=== PATIENT | male | born 1945 | race African-American/Black ===

== ENCOUNTER 2022-08-25 19:17 | Inpatient (IN) | payer OTHER, MEDICAID ==
[~2022-08-25] VITALS: Ht 177.8 cm; Wt 72.6 kg
--- NOTE | 2022-08-25 19:30 | NUR ---
Mago briones in [facility] - 08/25/22 at 1930 by JANEE PT TO BED 04 VIA W/C
--- NOTE | 2022-08-25 19:30 | NUR ---
PT W/C ASSISTED TO ER BED 4
[2022-08-25] MEDS ORDERED: NACL 0.9% 500 ML IV ONE (19:40)
[2022-08-25] MEDS ORDERED: ATROPINE 0.4 MG/ML VIAL IVP ONE ×2 (19:40→20:45)
[2022-08-25] MEDS ORDERED: CALCIUM GLUC 1 GM/50 mL NS BAG 50 ML IV ONE (20:00)
[2022-08-25] MEDS ORDERED: ATROPINE 1 MG/10 ML SYR IVP ONE (20:02)
--- NOTE | 2022-08-25 20:19 | NUR ---
X-Ray at bedside.
[2022-08-25 20:20] LABS: BASOPHILS # (AUTO) 0.1 K/uL (0.00-0.22); BASOPHILS % (AUTO) 0.6 % (0.0-2.0); EOSINOPHILS # (AUTO) 0.1 K/uL (0-0.4); EOSINOPHILS % (AUTO) 1.1 % (0.0-4.0); HEMOGLOBIN 13.5 g/dL (12.0-18.0); LYMPHOCYTES # (AUTO) 3.1 K/uL (2.0-11.5); LYMPHOCYTES % (AUTO) 30.1 % (20.5-51.1); MEAN CORPUSCULAR HEMOGLOBIN 28 pg (27-31); MEAN CORPUSCULAR HGB CONC 31 g/dL (33-37); MEAN CORPUSCULAR VOLUME 88.3 fL (80-94); MONOCYTES # (AUTO) 1.1 K/uL (0.8-1.0); MONOCYTES % (AUTO) 10.6 % (1.7-9.3); NEUTROPHILS # (AUTO) 5.9 K/uL (1.8-7.7); NEUTROPHILS % (AUTO) 57.6 % (42.2-75.2); PLATELET COUNT (AUTO) 192 K/uL (140-450); RED BLOOD CELL COUNT(AUTO) 4.87 MIL/uL (4.20-6.10); RED CELL DISTRIBUTION WIDTH 16.4 % (11.6-13.7); WHITE BLOOD COUNT (AUTO) 10.3 K/uL (4.8-10.8)
[2022-08-25] MEDS ORDERED: NITROGLYCERIN 2% 1 GM PKT TP ONE (20:30)
[2022-08-25 20:34] VITALS: BP 109/37
[2022-08-25] MEDS ORDERED: LEVO0.155 PO (20:34)
[2022-08-25] MEDS ORDERED: METF-346 PO (20:34)
[2022-08-25] MEDS ORDERED: ATEN100T2 PO (20:34)
[2022-08-25] MEDS ORDERED: DILT-135 (20:34)
[2022-08-25] MEDS ORDERED: PRED5TAB7 PO (20:34)
[2022-08-25] MEDS ORDERED: CANA300T PO (20:34)
[2022-08-25] MEDS ORDERED: BUME1TAB92 PO (20:34)
[2022-08-25] MEDS ORDERED: POTA10TA70 PO (20:34)
[2022-08-25] MEDS ORDERED: LOSA100T2 PO (20:34)
[2022-08-25] MEDS ORDERED: ROSU40TA PO (20:34)
[2022-08-25 20:42] LABS: PROTHROMBIN TIME 11.6 secs (10.8-13.4)
[2022-08-25 20:44] LABS: ALBUMIN 3.4 g/dL (3.4-5.0); ANION GAP 16.2 (8-16); ASPARTATE AMINOTRANSFERASE 33 U/L (15-37); CARBON DIOXIDE 20.9 mmol/L (21-32); CHLORIDE 101 mmol/L (98-107); CREATININE 2.1 mg/dL (0.6-1.3); GLUCOSE 307 mg/dL (74-106); SODIUM SERUM 132 mmol/L (136-145); TOTAL BILIRUBIN 0.4 mg/dL (0.0-1.0); UREA NITROGEN, BLOOD 16 mg/dL (7-18)
[2022-08-25] MEDS ORDERED: GLUCAGON 1 MG VIAL IVP ONE (20:45)
[2022-08-25 20:51] LABS: POTASSIUM 6.1 mmol/L (3.5-5.1)
[2022-08-25] MEDS ORDERED: ONDANSETRON 4 MG/2 ML VIAL ONE (20:54)
[2022-08-25] MEDS ORDERED: ONDANSETRON 4 MG/2 ML VIAL IVP ONE (20:55)
[2022-08-25] MEDS ORDERED: INSULIN REGULAR, HUMAN 100 UNIT/ML VIAL IV ONE (20:55)
[2022-08-25] MEDS ORDERED: FUROSEMIDE 40 MG/4 ML VIAL IVP ONE (20:55)
[2022-08-25] MEDS ORDERED: DEXTROSE 50% 50 ML SYR IVP ONE (20:55)
[2022-08-25] MEDS ORDERED: ALBUTEROL 0.083% 2.5 MG/3 ML NEBU INH PRN (20:55)
[2022-08-25] MEDS ORDERED: ZOLPIDEM 10 MG TAB PO PRN (21:00)
[2022-08-25] MEDS ORDERED: DOCUSATE SODIUM 100 MG GELCAP PO PRN (21:00)
[2022-08-25] MEDS ORDERED: ACETAMINOPHEN 325 MG TAB PO PRN (21:00)
[2022-08-25] MEDS ORDERED: ONDANSETRON 4 MG/2 ML VIAL IVP PRN (21:00)
[2022-08-25] MEDS ORDERED: MAG SULF 2000 MG/WATER PREMIX 50 ML IV PRN (21:00)
[2022-08-25] MEDS ORDERED: LORazepam 2 MG/ML VIAL IVP PRN (21:00)
[2022-08-25] MEDS ORDERED: POTASSIUM CHLORIDE 10 MEQ TABER PO PRN (21:00)
[2022-08-25] MEDS ORDERED: MORPHINE SULFATE 2 MG/ML SYR IVP PRN (21:00)
[2022-08-25] MEDS ORDERED: DEXTROSE 50% 50 ML SYR IVP PRN (21:00)
[2022-08-25] MEDS ORDERED: VANCOMYCIN 1,000 MG in DEXTROSE 5% 250 ML IV ONE (21:05)
--- NOTE | 2022-08-25 21:12 | NUR ---
PT WAS ABLE TO REMOVE BiPAP MASK AND VOMITED AT APPROXIMATELY 2100. PT FEELING NAUSEOUS. PLACED PT ON HFNC 40L 100%. PT TOLERATED THERAPY WELL AT THIS TIME. RN AND DR. RICE NOTIFIED.
[2022-08-25 21:15] VITALS: BP 159/48
[2022-08-25 21:16] LABS: MAGNESIUM 1.7 mg/dL (1.8-2.4); PHOSPHORUS 3.4 mg/dL (2.5-4.9)
[2022-08-25] MEDS ORDERED: VANCOMYCIN 1,000 MG VIAL ONE (21:24)
[2022-08-25] MEDS ORDERED: ALBUTEROL 0.083% 2.5 MG/3 ML NEBU INH SCH (21:25)
[2022-08-25] MEDS: BLOOD GLUCOSE MONITORING 1 DEV DEV FS SCH (22:05)
[2022-08-25] MEDS: INSULIN LISPRO SLIDING SCALE 100 UNITS/ML VIAL SUBQ PRN (22:17)
[2022-08-25] MEDS ORDERED: ALBUTEROL 0.083% 2.5 MG/3 ML NEBU INH STA (23:20)
[2022-08-25] MEDS ORDERED: SODIUM BICARBONATE 8.4% PFS 50 MEQ/50 ML SYR IVP ONE ×2 (23:24→23:30)
[2022-08-25] MEDS ORDERED: SODIUM ZIRCONIUM CYCLOSILICATE 10 GM POWD.PACK PO ONE (23:35)
[2022-08-25 23:55] VITALS: BP 128/59
[2022-08-26] VITALS (20 sets, daily range): BP systolic 97–160; BP diastolic 40–94
--- NOTE | 2022-08-26 00:08 | NUR ---
Patient will be admitted to [facility]. Admited to ICU. Will go to room 5. Belongings list completed. Report to JOSE E RODRÍGUEZ.
[2022-08-26] MEDS ORDERED: PIPERACILLIN/TAZOBACTAM 3.375 GM VIAL IV ONE ×2 (00:21→06:34)
[2022-08-26] MEDS: PIPERACILLIN/TAZOBACTAM 3.375 GM in DEXTROSE 5% 50 ML IV SCH ×2 (00:24→06:40)
--- NOTE | 2022-08-26 04:01 | NUR ---
SPO2 99%. TITRATED FiO2 FROM 100% TO 50%. PT TOLERATING WELL AT THIS TIME. SPO2 97%. RN NOTIFIED. WILL CONTINUE TO MONITOR PT.
[2022-08-26 05:24] LABS: ANION GAP 14.4 (8-16); CARBON DIOXIDE 24.4 mmol/L (21-32); CHLORIDE 102 mmol/L (98-107); CREATININE 2.2 mg/dL (0.6-1.3); GLUCOSE 136 mg/dL (74-106); POTASSIUM 5.8 mmol/L (3.5-5.1); SODIUM SERUM 135 mmol/L (136-145); UREA NITROGEN, BLOOD 20 mg/dL (7-18)
[2022-08-26 05:25] LABS: BASOPHILS % (AUTO) 0.3 % (0.0-2.0); EOSINOPHILS % (AUTO) 0.3 % (0.0-4.0); HEMATOCRIT 41.3 % (36-52); HEMOGLOBIN 13.2 g/dL (12.0-18.0); LYMPHOCYTES # (AUTO) 2.8 K/uL (2.0-11.5); MEAN CORPUSCULAR HEMOGLOBIN 27 pg (27-31); MEAN CORPUSCULAR HGB CONC 32 g/dL (33-37); MEAN CORPUSCULAR VOLUME 85.6 fL (80-94); MONOCYTES # (AUTO) 1.2 K/uL (0.8-1.0); MONOCYTES % (AUTO) 9.6 % (1.7-9.3); NEUTROPHILS % (AUTO) 66.8 % (42.2-75.2); PLATELET COUNT (AUTO) 186 K/uL (140-450); RED BLOOD CELL COUNT(AUTO) 4.83 MIL/uL (4.20-6.10); RED CELL DISTRIBUTION WIDTH 16.3 % (11.6-13.7)
[2022-08-26] MEDS: LEVOTHYROXINE 0.075 MG TAB PO SCH (06:42)
[2022-08-26] MEDS ORDERED: ZOLPIDEM 5 MG TAB PO PRN (06:55)
--- NOTE | 2022-08-26 07:15 | NUR ---
RECEIVED BEDSIDE REPORT FROM MARCOS DORANTES. PT ALLERGIC TO SULFA. PT HAS IV ON R FOREARM. PT HAS DEXCOM ON L TRICEP WITH SENSOR. PT ABLE TO USE BEDSIDE COMMODE LAST BM THIS MORNING. PT HAS STERILE WATER IRRIGATION 35 ML/HR.
[2022-08-26] MEDS ORDERED: INSULIN REGULAR, HUMAN 100 UNIT/ML VIAL IV SCH (07:45)
[2022-08-26] MEDS ORDERED: DEXTROSE 50% 50 ML SYR IVP SCH (07:45)
[2022-08-26] MEDS ORDERED: SODIUM ZIRCONIUM CYCLOSILICATE 10 GM POWD.PACK PO SCH (08:00)
[2022-08-26] MEDS: BLOOD GLUCOSE MONITORING 1 DEV DEV FS SCH ×4 (08:10→21:17)
--- NOTE | 2022-08-26 08:15 | NUR ---
PT WITH POTASSIUM LEVEL OF 5.8 AND D-DIMER 920. ROUNDING DR. KRISHNA AWARE. NO ORDERS RECEIVED.
--- NOTE | 2022-08-26 08:52 | NUR ---
PATIENT HAS BEEN SCREENED AND CATEGORIZED HIGH NUTRITION RISK. PATIENT WILL BE SEEN WITHIN 1-2 DAYS OF ADMISSION. REVIEWED BY RICK RENNER RD
[2022-08-26] MEDS ORDERED: FUROSEMIDE 40 MG/4 ML VIAL IVP SCH (09:00)
[2022-08-26] MEDS ORDERED: LOSARTAN 50 MG TAB PO SCH (09:00)
--- NOTE | 2022-08-26 09:54 | NUR ---
PT WAS FOUND IN BED WITH OXYGEN OFF AND SATURATION WAS 82%. PT HAD BE USING THE COMMODE AND STANDING FOR AWHILE. PLACED PT BACK ON HFNC WITH SETTINGS OF 35 LPM AND 40% FiO2. PT SATURATION RETURNED TO 96%. ABG WAS DONE AND RESULTS ARE pH 7.4, pCO2 32.8, pO2 65.8, HCO3- 20, AND BE -3.8. PER DOCTOR INSTRUCTED PATIENT ON USE OF IS..
--- NOTE | 2022-08-26 10:58 | NUR ---
DC PLAN A CASE OF 77 YEAR OLD MALE PATIENT ADMITTED FOR CHF .HX OF HYPOTHYROIDISM , HTN, A.FIB .CAME IN TO ER WITH COMPLAINTS OF GENERALIZED MALAISE.CXR- PULMONARY EDEMA AND PNEUMONIA.PATIENT ON HI FLOW O2.DC PLAN- HOME WHEN PATIENT RESPONDS TO TX.CM TO FOLLOW Addendum: 08/26/22 at 1111 by JAYNE GRAHAM CM DC PLANNING -ADDENDUM ON ZOSYN.BLOOD CULTURES AND MRSA SCREENING PENDING. Addendum: 08/29/22 at 1138 by Mis Rooney RN DC PLANNING: SEEN BY SHERIFF KIDNEY FUNCTION IMPROVING RECOMMENDED LASIX PO. AND OK TO DC HOME AND FOLLOW UP[P WITH PCP. PATIENT IS STABLE FOR DISCHARGE. CM TO FOLLOW.
--- NOTE | 2022-08-26 11:35 | NUR ---
INSTRUCTED PT ON THE USE OF INCENTIVE SPIROMETRY. PT TOOK 8 BREATHS WITH AN AVERAGE VOLUME OF 1750. CURRENT GOAL IS TO CONSISTENTLY HIT 2000 AND TO USE 10 TIMES PER HOUR, EVERY HOUR WHILE AWAKE. NEEDS TO WORK ON BREATH HOLD.
--- NOTE | 2022-08-26 11:58 | NUR ---
DC PLANNING ASSESSMENT COMPLETE PLEASE REFER TO ASSESSMENT FOR ADDITIONAL DETAILS FAMILY REPORTS TENTATIVE DC PLAN IS FOR PT TO RETURN PENDING PHYSICIANS RECOMMENDATIONS. FAMILY TO PROVIDE TRANSPORTATION ONCE CLEARED FROM DC. Addendum: 08/26/22 at 1200 by Imani Hunter SS Amended: Links added.
[2022-08-26] MEDS ORDERED: PIPERACILLIN/TAZOBACTAM 3.375 GM in DEXTROSE 5% 50 ML IV SCH (12:00)
[2022-08-26] MEDS: SODIUM ZIRCONIUM CYCLOSILICATE 10 GM POWD.PACK PO SCH ×2 (12:07→21:23)
[2022-08-26] MEDS: INSULIN LISPRO SLIDING SCALE 100 UNITS/ML VIAL SUBQ PRN ×2 (12:11→21:22)
[2022-08-26] MEDS: PIPERACILLIN/TAZOBACTAM 2.25 GM in DEXTROSE 5% 50 ML IV SCH ×2 (12:13→17:32)
--- NOTE | 2022-08-26 15:24 | NUR ---
08/26/22 RD INITIAL ASSESSMENT COMPLETED PLEASE REFER TO NUTRITION ASSESSMENT UNDER CARE ACTIVITY FOR ESTIMATED NUTRITIONAL NEEDS. 1. RECOMMEND ADDING [id number] TO CARDIAC DIET TOLERATED 2. MONITOR PO INTAKE AND NUTRITION RELATED LAB VALUES 3. RD TO FOLLOW-UP 7 DAYS, LOW RISK REVIEWED BY RICK RENNER RD
[2022-08-26 16:17] LABS: APPEARANCE,URINE CLEAR (CLEAR); BILIRUBIN,URINE NEGATIVE (NEGATIVE); BLOOD, URINE NEGATIVE (NEGATIVE); COLOR,URINE YELLOW (YELLOW); LEUKOCYTE ESTERASE ,URINE NEGATIVE (NEGATIVE); NITRITE, URINE NEGATIVE (NEGATIVE); PH,URINE 5.5 (5.0-9.0); UGLUCOSE TRACE (NEGATIVE)
[2022-08-26 16:41] LABS: URINE TOTAL PROTEIN 12.4 mg/dL (0-12)
[2022-08-26] MEDS: FUROSEMIDE 40 MG/4 ML VIAL IVP SCH (17:30)
--- NOTE | 2022-08-26 18:18 | NUR ---
PILOT PLANT OPERATOR DR SOWMYA NOVA AT PT BEDSIDE. UPDATED PT INFORMATION. NO NEW ORDERS RECEIVED.
[2022-08-27] VITALS (10 sets, daily range): BP systolic 102–142; BP diastolic 49–78
[2022-08-27] MEDS: PIPERACILLIN/TAZOBACTAM 2.25 GM in DEXTROSE 5% 50 ML IV SCH ×3 (00:10→11:49)
[2022-08-27] MEDS: LEVOTHYROXINE 0.075 MG TAB PO SCH (05:35)
[2022-08-27 05:41] LABS: ANION GAP 12.1 (8-16); CARBON DIOXIDE 30.3 mmol/L (21-32); CHLORIDE 99 mmol/L (98-107); CREATININE 1.5 mg/dL (0.6-1.3); GLUCOSE 149 mg/dL (74-106); POTASSIUM 3.4 mmol/L (3.5-5.1); SODIUM SERUM 138 mmol/L (136-145); UREA NITROGEN, BLOOD 15 mg/dL (7-18)
[2022-08-27 05:46] LABS: BASOPHILS # (AUTO) 0.1 K/uL (0.00-0.22); EOSINOPHILS # (AUTO) 0.2 K/uL (0-0.4)
[2022-08-27 05:48] LABS: BASOPHILS % (AUTO) 0.6 % (0.0-2.0); EOSINOPHILS % (AUTO) 1.2 % (0.0-4.0); HEMOGLOBIN 13.7 g/dL (12.0-18.0); LYMPHOCYTES # (AUTO) 2.7 K/uL (2.0-11.5); LYMPHOCYTES % (AUTO) 19.1 % (20.5-51.1); MEAN CORPUSCULAR HEMOGLOBIN 28 pg (27-31); MEAN CORPUSCULAR HGB CONC 33 g/dL (33-37); MEAN CORPUSCULAR VOLUME 85.2 fL (80-94); MONOCYTES # (AUTO) 1.8 K/uL (0.8-1.0); MONOCYTES % (AUTO) 12.9 % (1.7-9.3); NEUTROPHILS # (AUTO) 9.4 K/uL (1.8-7.7); NEUTROPHILS % (AUTO) 66.2 % (42.2-75.2); PLATELET COUNT (AUTO) 173 K/uL (140-450); RED BLOOD CELL COUNT(AUTO) 4.93 MIL/uL (4.20-6.10); RED CELL DISTRIBUTION WIDTH 15.9 % (11.6-13.7); WHITE BLOOD COUNT (AUTO) 14.3 K/uL (4.8-10.8)
[2022-08-27 06:10] LABS: MAGNESIUM 1.5 mg/dL (1.8-2.4); PHOSPHORUS 3.6 mg/dL (2.5-4.9)
--- NOTE | 2022-08-27 07:20 | NUR ---
RECEIVED BEDSIDE REPORT FROM STUDENT CAREER DEVELOPMENT SPECIALIST JOSE E RODRÍGUEZ. PT IS ON SEMI-FOWLERS POSITION - AWAKE, ALERT AND ORIENTED TO TI,E, PLACE AND PERSON. ABLE TO FOLLOW COMMAND. WITH HIGH-FLOW OXYGENATION AT 30% - O2 SATURATION IS 98-100%, NOT IN RESPIRATORY DISTRESS. SINUS TACHYCARDIC ON SUPERVISOR PAPER TESTING AT 112 BPM. WITH NORMAL SALINE TKO AT 5 ML/HR INFUSING WELL TO PERIPHERAL IV 20 G AT RIGHT FOREARM. WITH ANOTHER PERIPHERAL IV ACCESS G 20 OVER LEFT FOREARM V. WITH DEXCOM OVER LEFT TRICEP. SAFETY PRECAUTION IN PLACE. WILL CONTINUE TO MONITOR
--- NOTE | 2022-08-27 08:00 | NUR ---
ACCU-CHECK DONE WITH 154 RESULT - HUMULOG GIVEN PER SQ, CO-SIGNED BY MARCOS MILLER.
[2022-08-27] MEDS: INSULIN LISPRO SLIDING SCALE 100 UNITS/ML VIAL SUBQ PRN ×4 (08:01→20:34)
[2022-08-27] MEDS: BLOOD GLUCOSE MONITORING 1 DEV DEV FS SCH ×4 (08:07→20:32)
--- NOTE | 2022-08-27 08:53 | NUR ---
MAGNESIUM SULFATE 2000MG STARTED AT 25 ML/HR VIA IVPB PRN DOSE FOR PT'S LOW MAGNESIUM LEVEL OF 1.5 - CO-SIGNED WITH MARCOS MILLER.
[2022-08-27] MEDS: SODIUM ZIRCONIUM CYCLOSILICATE 10 GM POWD.PACK PO SCH (09:00)
--- NOTE | 2022-08-27 09:30 | NUR ---
DR. BAL ROUNDING AT BEDSIDE. UPDATED PATIENT INFORMATION.
--- NOTE | 2022-08-27 10:18 | NUR ---
SEEN AND EXAMINED BY DR. WALKER. UPDATED PT INFORMATION. PT OK FOR TRANSFER TO TELE.
[2022-08-27] MEDS: FUROSEMIDE 40 MG/4 ML VIAL IVP SCH ×2 (10:26→17:41)
--- NOTE | 2022-08-27 10:32 | NUR ---
K DUR 4 TABS (40MEQS) GIVEN PO FOR LOW POTASSIUM LEVEL OF 3.4.
[2022-08-27] MEDS ORDERED: VANCOMYCIN PER PHARMACY MC SCH (11:55)
[2022-08-27] MEDS ORDERED: VANCOMYCIN 1.25GM PREMIX 250 ML IV SCH (13:00)
--- NOTE | 2022-08-27 14:00 | NUR ---
NEW ORDER BY DR. MALIK OF K DUR TABS 20 MEQS NOT GIVEN. INFORMED DR. MALIK OF PRN DOSE GIVEN EARLIER FOR 3.4 POTASSIUM LEVEL - ACKNOWLEDGED BY DR. MALIK AND ADVISED NOT TO GIVE THE NEW ADDITIONAL DOSE. Addendum: 08/27/22 at 1710 by AMOS MARTINO RN [address] MALIK OF K DUR TABS 20 MEQS NOT GIVEN. INFORMED DR. MALIK OF PRN DOSE GIVEN EARLIER FOR 3.4 POTASSIUM LEVEL - ACKNOWLEDGED BY DR. MALIK AND ADVISED NOT TO GIVE THE NEW ADDITIONAL DOSE.
--- NOTE | 2022-08-27 14:09 | NUR ---
SEEN AND EXAMINED BY DR. DENG. UPDATED PT INFORMATION. PT OK TO DOWNGRADE TO TELE.
[2022-08-27] MEDS: AZITHROMYCIN 500 MG in DEXTROSE 5% 250 ML IV SCH (14:18)
--- NOTE | 2022-08-27 14:30 | NUR ---
LLAMA FARMER INFORMED OF TRANSFER. TELEMETRY UNIT CALLED - NO AVAILABLE BED OF THE MOMENT. ADVISED BY NURSE TO CALL AT 6 PM. LLAMA FARMER INFORMED.
--- NOTE | 2022-08-27 15:36 | NUR ---
SPUTUM COLLECTION DONE AND SPECIMEN SUBMITTED TO LAB.
[2022-08-27] MEDS ORDERED: POTASSIUM CHLORIDE 10 MEQ TABER PO ONE (16:00)
--- NOTE | 2022-08-27 16:30 | NUR ---
SEEN AND EXAMINED BY DR. SANCHEZ. UPDATED PT INFORMATION.
--- NOTE | 2022-08-27 18:40 | NUR ---
PT TRANSFERRED TO TEL ROOM 124B VIA WHEELCHAIR WITH HELP FROM RT. SBAR REPORT GIVEN TO MARCOS DONALD. ALL QUESTIONS ANSWERED. PT VITAL SIGNS STABLE.
--- NOTE | 2022-08-27 19:05 | NUR ---
RECEIVED PT FROM MORNING SHIFT NURSE. PT IS AOX4, AMBULATORY WITH ASSIST, ABLE VERBALIZE NEEDS AND ABLE TO FOLLOW COMMANDS. PT HAS HI-FLOW WITH 15L OF O2 LEVEL FLOW RATE AND FIO2 OF 25%.PT IS ON CARDIAC DIET AND HAS IV ON RIGHT FOREARM GAUGE 20 RUNNING WITH NS AT 5ML/HR AND SALINE LOCK ON LEFT FOREARM GAUGE 20. PT SKIN IS INTACT. PT DENIES PAIN AT THIS TIME. NO S/S OF RESPIRATORY DISTRESS NOTED. ALL SAFETY MEASURES IMPLEMENTED. BED IN LOW POSITION, BED WHEELS ON LOCK AND CALL LIGHT WITHIN REACH.
[2022-08-27] MEDS: OSELTAMIVIR PHOSPHATE 75 MG CAP PO SCH (20:25)
[2022-08-27] MEDS: METOPROLOL 25 MG TAB PO SCH (20:25)
--- NOTE | 2022-08-27 20:34 | NUR ---
SCHEDULED AND PRESCRIBED MEDICATION WAS GIVEN TO PT PER MD ORDER. PT BLOOD GLUCOSE IS 155. HUMALOG INSULIN 2 UNITS WAS GIVEN TO PT PER MD ORDER. ALL SAFETY MEASURES IMPLEMENTED. BED IN LOW POSITION, BED WHEELS ON LOCK AND CALL LIGHT WITHIN REACH.
--- NOTE | 2022-08-27 22:00 | NUR ---
RT CHANGED THE LEVEL OF HI-FLOW INTO O2 OF 20L/MIN WITH FIO2 OF 25% AND NOW SATING AT 94%
--- NOTE | 2022-08-27 22:00 | NUR ---
RT CHANGED THE LEVEL OF HI-FLOW INTO O2 OF 25L/MIN WITH FIO2 OF 20% AND NOW SATING AT 94% Addendum: 08/27/22 at 2345 by Stephanie Lambert RN WRONG ENTRY
[2022-08-28] VITALS: BP 121/60
--- NOTE | 2022-08-28 | NUR ---
PT IS ON SLEEP.CHEST RISE AND FALL SYMMETRICALLY NOTED. RESPIRATION IS EVEN AND UNLABORED. ALL SAFETY MEASURES IMPLEMENTED. LUCIO DIN LOW POSITION, BED WHEELS ON LOCK AND CALL LIGHT WITHIN REACH.
--- NOTE | 2022-08-28 02:00 | NUR ---
CHECKED THE PT, STILL ON SLEEP. CHEST RISE AND FALL SYMMETRICALLY NOTED. RESPIRATION IS EVEN AND UNLABORED. ALL SAFETY MEASURES IMPLEMENTED. LUCIO DIN LOW POSITION, BED WHEELS ON LOCK AND CALL LIGHT WITHIN REACH.
[2022-08-28 04:00] VITALS: BP 125/78
[2022-08-28] MEDS: LEVOTHYROXINE 0.075 MG TAB PO SCH (06:09)
--- NOTE | 2022-08-28 06:09 | NUR ---
SCHEDULED AND PRESCRIBED MEDICATION WAS GIVEN TO PT PER MD ORDER. ALL SAFETY MEASURES IMPLEMENTED. BED IN LOW POSITION, BED WHEELS ON LOCK AND CALL LIGHT WITHIN REACH.
[2022-08-28 06:37] LABS: BASOPHILS # (AUTO) 0.1 K/uL (0.00-0.22); BASOPHILS % (AUTO) 1.1 % (0.0-2.0); EOSINOPHILS # (AUTO) 0.2 K/uL (0-0.4); EOSINOPHILS % (AUTO) 2.7 % (0.0-4.0); HEMATOCRIT 44.1 % (36-52); HEMOGLOBIN 14.6 g/dL (12.0-18.0); LYMPHOCYTES # (AUTO) 2.3 K/uL (2.0-11.5); LYMPHOCYTES % (AUTO) 26.3 % (20.5-51.1); MEAN CORPUSCULAR HEMOGLOBIN 28 pg (27-31); MEAN CORPUSCULAR HGB CONC 33 g/dL (33-37); MEAN CORPUSCULAR VOLUME 84.8 fL (80-94); MONOCYTES # (AUTO) 1.2 K/uL (0.8-1.0); MONOCYTES % (AUTO) 13.9 % (1.7-9.3); PLATELET COUNT (AUTO) 174 K/uL (140-450); RED CELL DISTRIBUTION WIDTH 15.7 % (11.6-13.7); WHITE BLOOD COUNT (AUTO) 8.9 K/uL (4.8-10.8)
[2022-08-28] MEDS: BLOOD GLUCOSE MONITORING 1 DEV DEV FS SCH ×4 (06:38→21:25)
--- NOTE | 2022-08-28 06:38 | NUR ---
PT BLOOD GLUCOSE IS 120. NO INSULIN COVERAGE NEEDED.
[2022-08-28 06:59] LABS: ANION GAP 12.5 (8-16); CARBON DIOXIDE 30.9 mmol/L (21-32); CHLORIDE 99 mmol/L (98-107); CREATININE 1.3 mg/dL (0.6-1.3); GLUCOSE 111 mg/dL (74-106); POTASSIUM 3.4 mmol/L (3.5-5.1); SODIUM SERUM 139 mmol/L (136-145); UREA NITROGEN, BLOOD 19 mg/dL (7-18)
[2022-08-28 07:02] LABS: MAGNESIUM 1.7 mg/dL (1.8-2.4); PHOSPHORUS 3.2 mg/dL (2.5-4.9)
--- NOTE | 2022-08-28 07:19 | NUR ---
PT IS STABLE. ENDORSED PT TO MORNING SHIFT NURSE FOR CONTINUITY OF CARE.
--- NOTE | 2022-08-28 07:20 | NUR ---
RECEIVED PATIENT FROM PM NURSE FOR CONTINUATION OF CARE.
[2022-08-28 08:00] VITALS: BP 125/69
[2022-08-28] MEDS: FUROSEMIDE 40 MG/4 ML VIAL IVP SCH (09:00)
[2022-08-28] MEDS: METOPROLOL 25 MG TAB PO SCH ×2 (09:00→21:18)
[2022-08-28] MEDS: OSELTAMIVIR PHOSPHATE 75 MG CAP PO SCH ×2 (09:00→21:18)
[2022-08-28 12:00] VITALS: BP 119/67
[2022-08-28] MEDS: AZITHROMYCIN 500 MG in DEXTROSE 5% 250 ML IV SCH (14:00)
[2022-08-28 16:00] VITALS: BP 129/65
[2022-08-28] MEDS: INSULIN LISPRO SLIDING SCALE 100 UNITS/ML VIAL SUBQ PRN ×2 (16:08→21:28)
--- NOTE | 2022-08-28 17:00 | NUR ---
POTASSIUM AND MAGNESIUM LOW FOR PATIENT. K DUR GIVEN. MAG RIDER GIVEN.
--- NOTE | 2022-08-28 19:30 | NUR ---
RECEIVED REPORT FROM DAY SHIFT NURSE ALEKSANDER FOR CONTINUITY OF CARE. PATIENT IS A&O X4. PATIENT IS ON HIGH FLOW NC, BREATHING IS NORMAL WITH SYMMETRICAL RISE AND FALL OF CHEST. IV IS A 20G R ARM AND 20G L ARM; NO FLUIDS RUNNING AT THIS TIME (SALINE LOCKED). PATIENT IS SLEEPING, LYING SEMI-FOWLERS IN BED. BED IS IN LOWEST POSITION, WHEELS LOCKED, CALL LIGHT IN PLACE. WILL CONTINUE TO OBSERVE PATIENT.
--- NOTE | 2022-08-28 19:31 | NUR ---
ENDORSED PATIENT TO PM NURSE FOR CONTINUATION OF CARE
[2022-08-28 20:00] VITALS: BP 124/65
[2022-08-29] VITALS: BP 112/54
--- NOTE | 2022-08-29 | NUR ---
PATIENT HAS BEEN SLEEPING THROUGHOUT THE NIGHT. PATIENT IS STILL ON HIGH FLOW NC. BREATHING IS NORMAL WITH SYMMETRICAL RISE AND FALL OF CHEST. WILL CONTINUE TO OBSERVE PATIENT.
[2022-08-29 04:00] VITALS: BP 111/51
[2022-08-29 05:56] LABS: BASOPHILS # (AUTO) 0.1 K/uL (0.00-0.22); BASOPHILS % (AUTO) 0.7 % (0.0-2.0); EOSINOPHILS # (AUTO) 0.3 K/uL (0-0.4); EOSINOPHILS % (AUTO) 3.2 % (0.0-4.0); HEMOGLOBIN 14.4 g/dL (12.0-18.0); LYMPHOCYTES % (AUTO) 24.4 % (20.5-51.1); MEAN CORPUSCULAR HEMOGLOBIN 28 pg (27-31); MEAN CORPUSCULAR HGB CONC 33 g/dL (33-37); MEAN CORPUSCULAR VOLUME 84.6 fL (80-94); MONOCYTES # (AUTO) 1.4 K/uL (0.8-1.0); MONOCYTES % (AUTO) 16.7 % (1.7-9.3); NEUTROPHILS # (AUTO) 4.6 K/uL (1.8-7.7); PLATELET COUNT (AUTO) 184 K/uL (140-450); RED CELL DISTRIBUTION WIDTH 15.6 % (11.6-13.7); WHITE BLOOD COUNT (AUTO) 8.4 K/uL (4.8-10.8)
[2022-08-29] MEDS: FUROSEMIDE 40 MG TAB PO SCH ×2 (06:37→09:00)
[2022-08-29] MEDS: LEVOTHYROXINE 0.075 MG TAB PO SCH (06:37)
[2022-08-29] MEDS: BLOOD GLUCOSE MONITORING 1 DEV DEV FS SCH (06:41)
--- NOTE | 2022-08-29 06:43 | NUR ---
PATIENT SLEPT THROUGHOUT THE NIGHT. ADMINISTERED 0630 AND 0700 MEDICATION WITHOUT ANY ISSUES WITH SWALLOWING. PATIENT'S BS WAS 138, NO INSULIN COVERAGE WAS NEEDED. WILL CONTINUE TO OBSERVE PATIENT.
--- NOTE | 2022-08-29 07:20 | NUR ---
RECEIVED PATIENT FROM PM NURSE FOR CONTINUATION OF CARE. PATIENT SEEN ON BED AWAKE AOX4.
--- NOTE | 2022-08-29 07:33 | NUR ---
ENDORSED TO DAY SHIFT NURSE ALEKSANDER FOR CONTINUITY OF CARE. PATIENT IS STABLE.
[2022-08-29 08:18] LABS: MAGNESIUM 2.1 mg/dL (1.8-2.4); PHOSPHORUS 3.5 mg/dL (2.5-4.9)
--- NOTE | 2022-08-29 08:40 | NUR ---
PT JUST CAME BACK FROM SHOWERING. NO DISTRESS NOTED. NO SOB NOTICED. WILL CONTINUE TO MONITOR
--- NOTE | 2022-08-29 08:47 | NUR ---
PT. WITH LOW JERONIMO SCALE AT MODERATE TO HIGH RISK, CONTINUE TO FOLLOW PRESSURE INJURY PREVENTION INTERVENTIONS. -POSITIONING: TURN AND REPOSITION PATIENT Q 2H OR SOONER USE PILLOWS TO KEEP BONY PROMINENCES FROM DIRECT CONTACT WITH SURFACES USE REPOSITIONING WEDGES TO PROVIDE 30-DEGREE ANGLE FOR SIDE LYING POSITIONS OFFLOADING OR FOAM DRESSING TO ALL TUBING TO PREVENT MEDICAL DEVICES RELATED PRESSURE INJURY -RE-EVALUATING AND MANAGING INCONTINENCE MONITOR SKIN CONDITION DURING POSITION CHANGE DO NOT MASSAGE REDNESS, BONY PROMINENCES FREQUENT VIJAYA-CARE AND PROVIDE BARRIER CREAMS PRN IF SOILING MOISTURE CONTROL BY OFFER BED ELLSWORTH/URINAL /ABSORBENT PAD TO WICK AND HOLD MOISTURE KEEP SKIN DRY AND PROTECT FROM FRICTION -MANAGE FRICTION/SHEAR/MOBILITY KEEP HOB AT THE LOWEST LEVEL OF ELEVATION NO MORE THAN 30 DEGREE UNLESS OTHERWISE CONTRAINDICATED USE LIFT SHEET OR TRANSFER DEVICE TO MOVE PATIENT AND PREVENT LATERAL SHEER. PROTECT HEELS, ELBOWS BONY PROMINENCES WITH SKIN BERRIES OR FOAM DRESSING IF EXPOSED TO FRICTION OFFLOAD BILATERAL HEELS BY PLACING PILLOWS UNDER CALVES AT ALL TIMES, UNLESS OTHERWISE CONTRAINDICATED -PRESSURE REDISTRIBUTION SURFACE THERAPY ERICK ISOFLEX MATTRESS -NUTRITION: PLEASE FOLLOW RD RECOMMENDATIONS AND OFFER NUTRITION SUPPLEMENTS IF ORDERED. PLEASE CONTACT WOUND CARE NURSE FOR ANY QUESTION AND CHANGE OF WOUND CONDITION.
[2022-08-29 08:58] LABS: ANION GAP 16.5 (8-16); CARBON DIOXIDE 25.9 mmol/L (21-32); CHLORIDE 100 mmol/L (98-107); CREATININE 1.1 mg/dL (0.6-1.3); GLUCOSE 128 mg/dL (74-106); POTASSIUM 3.4 mmol/L (3.5-5.1); SODIUM SERUM 139 mmol/L (136-145); UREA NITROGEN, BLOOD 18 mg/dL (7-18)
[2022-08-29] MEDS: OSELTAMIVIR PHOSPHATE 75 MG CAP PO SCH (09:58)
[2022-08-29] MEDS: METOPROLOL 25 MG TAB PO SCH (09:59)
[2022-08-29] MEDS ORDERED: ATEN100T2 PO (10:22)
[2022-08-29] MEDS ORDERED: BUME1TAB92 PO (10:22)
[2022-08-29] MEDS ORDERED: CEPH-588 PO (10:23)
[2022-08-29] MEDS ORDERED: AZIT250T3 PO (10:23)
[2022-08-29] MEDS ORDERED: POTASSIUM CHLORIDE 10 MEQ TABER PO SCH (11:05)
[2022-08-29 11:57] VITALS: BP 113/62
[2022-08-29] MEDS: INSULIN LISPRO SLIDING SCALE 100 UNITS/ML VIAL SUBQ PRN (12:27)
--- NOTE | 2022-08-29 13:00 | NUR ---
PATIENT DISCHARGED. ALL VITALS STABLE
== END 2022-08-29 12:40 | disposition home or self-care (01) | DRG 871 ==
LOC: MED 19:17 → MTU 20:55 → MIC 22:51 → MTU 08-27 18:50
PROVIDERS: ADMIT Family Medicine; ATTEND Family Medicine
PROC: 5A09357 Assistance with Respiratory Ventilation, Less than 24 Consecutive Hours, Continuous Positive Airway Pressure (ICD-10-PCS; principal; 2022-08-25)
PROC: 5A0945A Assistance with Respiratory Ventilation, 24-96 Consecutive Hours, High Flow/Velocity Cannula (ICD-10-PCS; 2022-08-25)
DX: A41.9 Sepsis, unspecified organism (principal); E11.10 Type 2 diabetes mellitus with ketoacidosis without coma; J18.9 Pneumonia, unspecified organism; J96.01 Acute respiratory failure with hypoxia; N17.0 Acute kidney failure with tubular necrosis; R65.21 Severe sepsis with septic shock; J44.0 Chronic obstructive pulmonary disease with (acute) lower respiratory infection; I50.9 Heart failure, unspecified; Z20.822 Contact with and (suspected) exposure to COVID-19; I11.0 Hypertensive heart disease with heart failure; E03.9 Hypothyroidism, unspecified; I48.91 Unspecified atrial fibrillation; G47.33 Obstructive sleep apnea (adult) (pediatric); R00.1 Bradycardia, unspecified; E87.5 Hyperkalemia; E11.65 Type 2 diabetes mellitus with hyperglycemia; K31.89 Other diseases of stomach and duodenum; Z88.2 Allergy status to sulfonamides
CPT/HCPCS: 36415; 36600; 71045; 76770; 80048; 80053; 81003; 82570; 82803; 82948; 83605; 83735; 83880; 84100; 84300; 84443; 84484; 85025; 85379; 85610; 85730; 87040; 87070; 87081; 87205; 93005; 94640; 94660; 96374; 96375; 96376; 99291; J0456; J0461; J0610; J0696; J1610; J1815; J1940; J2405; J2543; J3370; J3372; J3475; J7060; J7613; Q0092

== ENCOUNTER 2022-11-25 06:42 | Inpatient (IN) | payer MEDICAID, OTHER ==
[~2022-11-25] VITALS: Ht 177.8 cm; Wt 84.8 kg
[2022-11-25] VITALS (14 sets, daily range): BP systolic 113–129; BP diastolic 64–76; PULSE 64–79; RESP 16–20; TEMP 95–96.7; O2SAT 90–100
[~2022-11-25 06:42] MED LIST: ATEN100T2 PO; AZIT250T3 PO; BUME1TAB92 PO; CANA300T PO; CEPH-588 PO; DILT-135; LEVO0.155 PO; LOSA100T2 PO; METF-346 PO; POTA10TA70 PO; PRED5TAB7 PO; ROSU40TA PO
[2022-11-25] MEDS ORDERED: ALBUTEROL SULFATE/IPRATROPIU 3 ML SOL IH ONE (06:55)
--- NOTE | 2022-11-25 06:55 | NUR ---
Pt. BIB family with c/o chest pain for 3 days. 8/10 on pain scale. He claims heaviness on his chest. PMHx of Atrial Fib, COPD and DM. Allergic to Sulfa meds.
[2022-11-25] MEDS ORDERED: FUROSEMIDE 40 MG/4 ML VIAL IVP ONE (07:10)
--- NOTE | 2022-11-25 07:11 | NUR ---
IV Cannula inserted on Rt. AC with G20. EKG done. O2 on 2L via NAssal Cannula. Blood extracted for bloodwroks.
--- NOTE | 2022-11-25 07:16 | NUR ---
Mago briones in [facility] - 11/25/22 at 0813 by JACK RAD AT BEDSIDE
--- NOTE | 2022-11-25 07:18 | NUR ---
LAB AT BEDSIDE.
[2022-11-25 07:34] LABS: BASOPHILS # (AUTO) 0.2 K/uL (0.00-0.22); BASOPHILS % (AUTO) 2.5 % (0.0-2.0); EOSINOPHILS # (AUTO) 0.2 K/uL (0-0.4); EOSINOPHILS % (AUTO) 1.9 % (0.0-4.0); HEMOGLOBIN 14.5 g/dL (12.0-18.0); LYMPHOCYTES # (AUTO) 2.4 K/uL (2.0-11.5); LYMPHOCYTES % (AUTO) 28.7 % (20.5-51.1); MEAN CORPUSCULAR HEMOGLOBIN 29 pg (27-31); MEAN CORPUSCULAR HGB CONC 33 g/dL (33-37); MEAN CORPUSCULAR VOLUME 88.9 fL (80-94); MONOCYTES # (AUTO) 0.9 K/uL (0.8-1.0); MONOCYTES % (AUTO) 10.2 % (1.7-9.3); NEUTROPHILS # (AUTO) 4.8 K/uL (1.8-7.7); NEUTROPHILS % (AUTO) 56.7 % (42.2-75.2); PLATELET COUNT (AUTO) 166 K/uL (140-450); RED BLOOD CELL COUNT(AUTO) 4.96 MIL/uL (4.20-6.10); WHITE BLOOD COUNT (AUTO) 8.5 K/uL (4.8-10.8)
[2022-11-25 07:50] LABS: PROTHROMBIN TIME 11.6 secs (10.8-13.4)
[2022-11-25 07:56] LABS: ALBUMIN 3.3 g/dL (3.4-5.0); ANION GAP 13.3 (8-16); ASPARTATE AMINOTRANSFERASE 82 U/L (15-37); CARBON DIOXIDE 28.5 mmol/L (21-32); CHLORIDE 104 mmol/L (98-107); CREATININE 1.4 mg/dL (0.6-1.3); GLUCOSE 198 mg/dL (74-106); POTASSIUM 3.8 mmol/L (3.5-5.1); SODIUM SERUM 142 mmol/L (136-145); TOTAL BILIRUBIN 0.7 mg/dL (0.0-1.0); UREA NITROGEN, BLOOD 13 mg/dL (7-18)
--- NOTE | 2022-11-25 08:13 | NUR ---
RAD AT BEDSIDE
[2022-11-25] MEDS ORDERED: NITROGLYCERIN 0.4 MG TAB SL ONE (08:35)
[2022-11-25] MEDS ORDERED: LORazepam 2 MG/ML VIAL IVP PRN (08:50)
[2022-11-25] MEDS ORDERED: ACETAMINOPHEN 325 MG TAB PO PRN (08:50)
[2022-11-25] MEDS ORDERED: MORPHINE SULFATE 2 MG/ML SYR IVP PRN (08:50)
[2022-11-25] MEDS ORDERED: DEXTROSE 50% 50 ML SYR IVP PRN (08:50)
[2022-11-25] MEDS ORDERED: ALBUTEROL SULFATE/IPRATROPIU 3 ML SOL IH PRN (08:50)
[2022-11-25] MEDS ORDERED: DOCUSATE SODIUM 100 MG GELCAP PO PRN (08:50)
[2022-11-25] MEDS ORDERED: ZOLPIDEM 10 MG TAB PO PRN (08:50)
[2022-11-25] MEDS ORDERED: ONDANSETRON 4 MG/2 ML VIAL IVP PRN (08:50)
[2022-11-25] MEDS ORDERED: MAG SULF 2000 MG/WATER PREMIX 50 ML IV PRN (08:50)
[2022-11-25] MEDS ORDERED: AZITHROMYCIN 250 MG TAB PO SCH (08:53)
--- NOTE | 2022-11-25 09:06 | NUR ---
Report given to MARCOS Solis. Pt in stable condition, vss, no ss of acute distress, breathing equal and unlabored. Ordered Nitro not give because it is not available. Spoke with pharmacy x 2, but medication still not available.
--- NOTE | 2022-11-25 09:13 | NUR ---
PATIENT HAS BEEN SCREENED AND CATEGORIZED MODERATE NUTRITION RISK. PATIENT WILL BE SEEN WITHIN 3-5 DAYS OF ADMISSION. 11/28/22-11/30/[address] REVIEWED BY RICK RENNER RD
--- NOTE | 2022-11-25 09:35 | NUR ---
RECEIVED REPORT FROM ER NURSE FOR TRANSFER OF CARE. PT ARRIVED IN THE UNIT VIA GURNEY. PT IS ON 4L NC. PT IS STABLE, NO SIGN OF DISTRESS. ORIENTED TO THE NEW ENVIRONMENT. CALL LIGHT, TV, BED MECHANICS AND BATHROOM. CALL LIGHT WITHIN REACH.
--- NOTE | 2022-11-25 09:48 | NUR ---
Pt trans to 107b on monitor without incident. Pt a/o x 4, vss, no ss of acute distress.
[2022-11-25] MEDS: NACL 0.9% 1,000 ML IV SCH (11:12)
[2022-11-25] MEDS: BUMETANIDE 1 MG TAB PO SCH (11:33)
[2022-11-25] MEDS: LOSARTAN 50 MG TAB PO SCH (11:34)
[2022-11-25] MEDS: DILTIAZEM 120 MG CAPER PO SCH ×2 (11:35→20:13)
[2022-11-25] MEDS: BLOOD GLUCOSE MONITORING 1 DEV DEV FS SCH ×3 (11:47→20:13)
[2022-11-25] MEDS: INSULIN LISPRO SLIDING SCALE 100 UNITS/ML VIAL SUBQ PRN ×3 (11:49→20:14)
--- NOTE | 2022-11-25 18:15 | NUR ---
PT WAS DISCHARGED, ACCOMPANIED TOWARDS THE EXIT.UBER WAS PROVIDED FOR THE PT. [facility] BUT THEY DIDN'T SMART ENERGY SPECIALIST.PT WAS STABLE, STEADY GAIT. DISCHARGE PAPERS GIVEN, ID BAND AND IV REMOVED.
--- NOTE | 2022-11-25 19:15 | NUR ---
RECEIVED PT IN BED AWAKE, ALERT AND ORIENTED X 4. DENIES PAIN AT THIS TIME. NO ACUTE RESPIRATORY DISTRESS. SKIN WARM AND DRY TO TOUCH. IVF INFUSING WELL AT THIS TIME. SAFETY PRECAUTIONS IN PLACE, CALL LIGHT IN REACH, INSTRUCTED TO CALL IF ASSISTANCE IS NEEDED, PT VERBALLY ACKNOWLEDGED.
--- NOTE | 2022-11-25 19:15 | NUR ---
GAVE BEDSIDE REPORT TO ALINING INSPECTOR NURSE FOR CONTINUITY OF CARE, PT IS AWAKE, NO SIGN OF DISTRESS. CALL LIGHT WITHIN REACH.
--- NOTE | 2022-11-25 20:15 | NUR ---
SCHEDULED MEDICATIONS GIVEN ORDERED, PT TOLERATED WELL.
--- NOTE | 2022-11-25 21:00 | NUR ---
PROVIDED HS SNACKS, PT REQUESTED APPLE JUICE AND CRACKERS. ATE 100%.
--- NOTE | 2022-11-25 22:48 | NUR ---
CPAP PLACED BY RT ORDERED, PT TOLERATING WELL. Addendum: 11/26/22 at 0646 by Radha Grant RN BIPAP-
[2022-11-26] VITALS (11 sets, daily range): BP systolic 103–119; BP diastolic 55–69; PULSE 65–98; RESP 18–20; TEMP 95.1–98.1; O2SAT 97–100
--- NOTE | 2022-11-26 | NUR ---
VITAL SIGNS TAKEN AND DOCUMENTED. PATIENT DENIES PAIN. TOLERATING CPAP ORDERED. CALL LIGHT WITHIN REACH.
--- NOTE | 2022-11-26 02:20 | NUR ---
ROUNDING DONE. PT IS ASLEEP. BREATHING EVEN AND UNLABORED. CALL LIGHT WITHIN REACH.
[2022-11-26] MEDS: NACL 0.9% 1,000 ML IV SCH (04:54)
--- NOTE | 2022-11-26 04:58 | NUR ---
PT REQUESTED TO BE OFF CVPAP, PLACED BACK TO NASAL CANNULA. Addendum: 11/26/22 at 0642 by Radha Grant RN -3L
[2022-11-26] MEDS: LEVOTHYROXINE 0.075 MG TAB PO SCH (05:32)
--- NOTE | 2022-11-26 05:35 | NUR ---
WENT TO TAKE PT OFF BiPAP, FOUND PT ON 3L NC. SATURATION 97 %. PATIENT RESTING COMFORTABLY, NO DISTRESS NOTED.WILL CONTINUE TO MONITOR PT. CALL LIGHT ON BED ACCESSIBLE TO PATIENT.
[2022-11-26 06:01] LABS: BASOPHILS # (AUTO) 0.1 K/uL (0.00-0.22); EOSINOPHILS # (AUTO) 0.1 K/uL (0-0.4); EOSINOPHILS % (AUTO) 1.1 % (0.0-4.0); HEMATOCRIT 41.7 % (36-52); HEMOGLOBIN 13.8 g/dL (12.0-18.0); LYMPHOCYTES # (AUTO) 1.6 K/uL (2.0-11.5); LYMPHOCYTES % (AUTO) 17.1 % (20.5-51.1); MEAN CORPUSCULAR HEMOGLOBIN 29 pg (27-31); MEAN CORPUSCULAR HGB CONC 33 g/dL (33-37); MEAN CORPUSCULAR VOLUME 88.3 fL (80-94); MONOCYTES # (AUTO) 1.1 K/uL (0.8-1.0); MONOCYTES % (AUTO) 11.6 % (1.7-9.3); NEUTROPHILS # (AUTO) 6.4 K/uL (1.8-7.7); NEUTROPHILS % (AUTO) 69.2 % (42.2-75.2); PLATELET COUNT (AUTO) 151 K/uL (140-450); RED BLOOD CELL COUNT(AUTO) 4.72 MIL/uL (4.20-6.10); RED CELL DISTRIBUTION WIDTH 18.1 % (11.6-13.7); WHITE BLOOD COUNT (AUTO) 9.3 K/uL (4.8-10.8)
[2022-11-26] MEDS: INSULIN LISPRO SLIDING SCALE 100 UNITS/ML VIAL SUBQ PRN ×4 (06:36→20:29)
[2022-11-26] MEDS: BLOOD GLUCOSE MONITORING 1 DEV DEV FS SCH ×4 (06:37→20:26)
--- NOTE | 2022-11-26 06:42 | NUR ---
PATIENT IS AWAKE, ALERT AND ORIENTED. PROVIDED WITH APPLE JUICE. BS-196 MG/DL, INSULIN GIVEN PER SLIDING SCALE COVERAGE ORDERED. ALL NEEDS ATTENDED TO. DENIES PAIN. SAFETY PRECAUTIONS MAINTAINED DURING THE SHIFT, CALL LIGHT REMAINS WITHIN REACH.
--- NOTE | 2022-11-26 07:12 | NUR ---
RECEIVED BEDSIDE REPORT FROM PARIMUTUEL CLERK NURSE FOR CONTINUITY OF CARE. PT IS AWAKE, GREETED ME GOOD MORNING, ON 3L NC, NO SIGN OF DISTRESS, DENIES PAIN OVERNIGHT. CALL LIGHT WITHIN REACH.
[2022-11-26] MEDS: LOSARTAN 50 MG TAB PO SCH (08:48)
[2022-11-26] MEDS: BUMETANIDE 1 MG TAB PO SCH (08:49)
[2022-11-26] MEDS: AZITHROMYCIN 250 MG TAB PO SCH (08:50)
[2022-11-26] MEDS: DILTIAZEM 120 MG CAPER PO SCH ×2 (08:50→20:18)
[2022-11-26 09:36] LABS: ANION GAP 16.6 (8-16); CARBON DIOXIDE 25.5 mmol/L (21-32); CHLORIDE 102 mmol/L (98-107); CREATININE 1.5 mg/dL (0.6-1.3); POTASSIUM 3.1 mmol/L (3.5-5.1); SODIUM SERUM 141 mmol/L (136-145); UREA NITROGEN, BLOOD 14 mg/dL (7-18)
[2022-11-26 10:33] LABS: GLUCOSE 88 mg/dL (74-106)
[2022-11-26] MEDS: POTASSIUM CHLORIDE 10 MEQ TABER PO PRN (11:47)
--- NOTE | 2022-11-26 13:30 | NUR ---
PT IS AWAKE, WATCHING TV, ON 3L NC, NO CHEST PAIN AND NO SIGNS OF DISTRESS. CALL LIGHT WITHIN REACH.
--- NOTE | 2022-11-26 19:20 | NUR ---
GAVE ENDORSEMENT TO CREDIT RISK OFFICER NURSE FOR CONTINUITY OF CARE, PT IS AWAKE AND ON BIPAP. NO SIGN OF DISTRESS. CALL LIGHT WITHIN REACH.
--- NOTE | 2022-11-26 19:30 | NUR ---
RECEIVED REPORT FROM DAY SHIFT NURSE PROMISE FOR CONTINUITY OF CARE. PATIENT IS A&O X4. PATIENT IS ON BIPAP FOR BEDTIME (3L NC DURING DAY); BREATHING IS NORMAL WITH SYMMETRICAL RISE AND FALL OF CHEST. IV IS A 20G R HAND, AND 20G RAC WITH NS RUNNING AT 50. PATIENT IS LYING SUPINE WITH BIPAP IN PLACE. BED IS IN LOWEST POSITION, WHEELS LOCKED, CALL LIGHT IN PLACE. WILL CONTINUE TO OBSERVE PATIENT.
--- NOTE | 2022-11-26 20:40 | NUR ---
ADMINISTERED 2100 MEDICATION TO PATIENT SUCCESSFULLY WITHOUT ANY ISSUE WITH SWALLOWING. PATIENT'S BS WAS 181; 2 UNITS OF HUMALOG WAS GIVEN FOR COVERAGE. PATIENT IS LYING SUPINE ON BIPAP. WILL CONTINUE TO OBSERVE PATIENT.
[2022-11-27] VITALS (14 sets, daily range): BP systolic 108–127; BP diastolic 56–68; PULSE 69–106; RESP 18; TEMP 95.3–97.3; O2SAT 94–100
[2022-11-27] MEDS: NACL 0.9% 1,000 ML IV SCH ×2 (01:10→04:57)
--- NOTE | 2022-11-27 01:30 | NUR ---
RECEIVED CALL FROM RN REGARDING BI-PAP ALARM, PATIENT LEAK WAS TOO GREAT, TIGHTENED MASK SLIGHTLY, AND ALARM RESOLVED, CALL LIGHT WITHIN REACH, PT IS TOLERATING WELL, WILL CONTINUE TO MONITOR.
--- NOTE | 2022-11-27 01:45 | NUR ---
PATIENT HAS BEEN SLEEPING THROUGHOUT THE NIGHT. BIPAP MACHINE IS ON PATIENT. CALLED RT ABOUT BIPAP ALARM; RT CAME TO ROOM AND ASSESSED; ADJUSTED THE MASK WHICH FIXED THE ALARM. PATIENT CONTINUES TO SLEEP; BREATHING IS NORMAL WITH SYMMETRICAL RISE AND FALL OF CHEST. WILL CONTINUE TO OBSERVE PATIENT.
--- NOTE | 2022-11-27 05:00 | NUR ---
PATIENT HAS SLEPT THROUGHOUT THE NIGHT ON BIPAP. BREATHING IS NORMAL WITH SYMMETRICAL RISE AND FALL OF CHEST. WILL CONTINUE TO OBSERVE PATIENT.
[2022-11-27] MEDS: LEVOTHYROXINE 0.075 MG TAB PO SCH (06:29)
[2022-11-27] MEDS: BLOOD GLUCOSE MONITORING 1 DEV DEV FS SCH ×4 (06:35→20:16)
[2022-11-27 06:49] LABS: BASOPHILS # (AUTO) 0.1 K/uL (0.00-0.22); BASOPHILS % (AUTO) 0.8 % (0.0-2.0); EOSINOPHILS # (AUTO) 0.2 K/uL (0-0.4); EOSINOPHILS % (AUTO) 2.5 % (0.0-4.0); HEMATOCRIT 39.9 % (36-52); LYMPHOCYTES # (AUTO) 1.5 K/uL (2.0-11.5); LYMPHOCYTES % (AUTO) 18.2 % (20.5-51.1); MEAN CORPUSCULAR HEMOGLOBIN 29 pg (27-31); MEAN CORPUSCULAR HGB CONC 33 g/dL (33-37); MEAN CORPUSCULAR VOLUME 88.6 fL (80-94); MONOCYTES # (AUTO) 1.1 K/uL (0.8-1.0); MONOCYTES % (AUTO) 12.8 % (1.7-9.3); NEUTROPHILS # (AUTO) 5.4 K/uL (1.8-7.7); NEUTROPHILS % (AUTO) 65.7 % (42.2-75.2); PLATELET COUNT (AUTO) 144 K/uL (140-450); RED BLOOD CELL COUNT(AUTO) 4.51 MIL/uL (4.20-6.10); RED CELL DISTRIBUTION WIDTH 18.5 % (11.6-13.7); WHITE BLOOD COUNT (AUTO) 8.2 K/uL (4.8-10.8)
[2022-11-27 07:02] LABS: ANION GAP 11.1 (8-16); CARBON DIOXIDE 29.7 mmol/L (21-32); CHLORIDE 104 mmol/L (98-107); CREATININE 1.3 mg/dL (0.6-1.3); GLUCOSE 128 mg/dL (74-106); SODIUM SERUM 142 mmol/L (136-145); UREA NITROGEN, BLOOD 14 mg/dL (7-18)
[2022-11-27 07:07] LABS: POTASSIUM 2.8 mmol/L (3.5-5.1)
--- NOTE | 2022-11-27 07:26 | NUR ---
ENDORSED TO DAY SHIFT NURSE DAVE FOR CONTINUITY OF CARE. PATIENT IS STABLE.
--- NOTE | 2022-11-27 08:04 | NUR ---
PT TAKEN OFF OF NPPV AND PLACED ON 2L NC. PT AWAKE, ALERT AND NOT SOB OR IN RESPIRATORY DISTRESS. NO PRN BREATHING TX INDICATED AT THIS TIME. CALL LIGHT WITHIN REACH.
--- NOTE | 2022-11-27 08:30 | NUR ---
NURSE NOTES DR KRISHNA WAS AT BEDSIDE AND SHE WAS TOLD OF THE PATIENT K OF 2.8.
--- NOTE | 2022-11-27 08:30 | NUR ---
NURSE REPORT REPORT OBTAINED FROM NIGHT NURSE MARQUES MEDINA AT 0726 AND THIS NURSE ASSUMED CARE. VSS. AFEB. TELE WITH AFIB 72. NO C/O PAIN OR DISCOMFORT. IV NS INFUSING. K 2.[address] KRISHNA MAKING ROUNDS AND SHE WAS TOLD OF LOW KCL AND THAT PATIENT WILL GET PO KCL ALSO ORDERED. DAVE MARTINES RN
[2022-11-27] MEDS: BUMETANIDE 1 MG TAB PO SCH (08:36)
[2022-11-27] MEDS: LOSARTAN 50 MG TAB PO SCH (08:37)
[2022-11-27] MEDS: DILTIAZEM 120 MG CAPER PO SCH ×2 (08:37→20:13)
[2022-11-27] MEDS: AZITHROMYCIN 250 MG TAB PO SCH (08:38)
--- NOTE | 2022-11-27 09:40 | NUR ---
MD COMMUNICATION DR KRISHNA WAS NOTIFIED OF K OF 2.8 AND SHE ORDER KCL RIDER 40 MEQ WITH LIDOCAINE.
[2022-11-27] MEDS: POTASSIUM CHLORIDE 10 MEQ TABER PO PRN ×2 (09:42→09:43)
[2022-11-27] MEDS ORDERED: POTASSIUM CHLORIDE 40 MEQ, LIDOCAINE 1% 25 MG in NACL 0.9% 250 ML IV SCH (10:30)
[2022-11-27] MEDS: INSULIN LISPRO SLIDING SCALE 100 UNITS/ML VIAL SUBQ PRN ×3 (11:59→20:22)
--- NOTE | 2022-11-27 12:05 | NUR ---
NURSE NOTES BG BEFORE LUNCH 235- GIVEN 4 UNITS OF HUMALOG
[2022-11-27] MEDS: BUMETANIDE 1 MG/4 ML VIAL IV SCH (17:43)
--- NOTE | 2022-11-27 17:58 | NUR ---
NURSE NOTES BG BEFORE DINNER 169- GIVEN 2 UNITS HUMALOG. PATIENT ASKED TO INCREASE HIS O2. IT WASD AT 2 L/MIN PER NC, AND UP TO 3L/MIN. ON BUMEX IVP. VOIDING OFTEN
--- NOTE | 2022-11-27 19:15 | NUR ---
NURSE REPORT REPORT GIVEN TO NIGHT NURSE MARQUES Stein TO ASSUME CARE OF PATIENT. ALL QUESTIONS ANSWERED. DAVE MARTINES RN
--- NOTE | 2022-11-27 19:30 | NUR ---
RECEIVED REPORT FROM DAY SHIFT NURSE DAVE FOR CONTINUITY OF CARE. PATIENT IS A&O X4. PATIENT IS ON BIPAP FOR BEDTIME (3L NC DURING DAY); BREATHING IS NORMAL WITH SYMMETRICAL RISE AND FALL OF CHEST. IV IS A 20G R HAND, AND 20G RAC WITH NS RUNNING AT 5ML TKO. PATIENT IS LYING SUPINE WITH BIPAP IN PLACE. BED IS IN LOWEST POSITION, WHEELS LOCKED, CALL LIGHT IN PLACE. WILL CONTINUE TO OBSERVE PATIENT.
[2022-11-27] MEDS: APIXABAN 2.5 MG TAB PO SCH (20:18)
--- NOTE | 2022-11-27 20:30 | NUR ---
2100 MEDICATION WAS ADMINISTERED TO PATIENT SUCCESSFULLY WITHOUT ANY ISSUES WITH SWALLOWING. BREATHING WAS NORMAL WITH SYMMETRICAL RISE AND FALL OF CHEST. WILL CONTINUE TO OBSERVE PATIENT.
--- NOTE | 2022-11-27 23:00 | NUR ---
PATIENT IS SLEEPING COMFORTABLY LYING SUPINE ON BIPAP. BREATHING IS NORMAL WITH SYMMETRICAL RISE AND FALL OF CHEST. WILL CONTINUE TO OBSERVE PATIENT.
[2022-11-28] VITALS (14 sets, daily range): BP systolic 102–136; BP diastolic 60–75; PULSE 60–112; RESP 18–25; TEMP 95.7–97.6; O2SAT 97–100
--- NOTE | 2022-11-28 01:30 | NUR ---
LOOKED IN ON PATIENT. PATIENT IS SLEEPING LYING SUPINE ON BIPAP. BREATHING IS NORMAL WITH SYMMETRICAL RISE AND FALL OF CHEST. BED IS IN LOWEST POSITION, WHEELS LOCKED, CALL LIGHT IN PLACE. WILL CONTINUE TO OBSERVE PATIENT.
--- NOTE | 2022-11-28 04:30 | NUR ---
PATIENT IS SLEEPING. BIPAP STILL RUNNING. BREATHING IS NORMAL WITH SYMMETRICAL RISE AND FALL OF CHEST. WILL CONTINUE TO OBSERVE PATIENT.
[2022-11-28] MEDS: LEVOTHYROXINE 0.075 MG TAB PO SCH (06:18)
[2022-11-28 06:34] LABS: BASOPHILS # (AUTO) 0.1 K/uL (0.00-0.22); BASOPHILS % (AUTO) 0.8 % (0.0-2.0); EOSINOPHILS # (AUTO) 0.2 K/uL (0-0.4); EOSINOPHILS % (AUTO) 3.5 % (0.0-4.0); HEMATOCRIT 40.7 % (36-52); HEMOGLOBIN 13.2 g/dL (12.0-18.0); LYMPHOCYTES # (AUTO) 1.4 K/uL (2.0-11.5); LYMPHOCYTES % (AUTO) 21.1 % (20.5-51.1); MEAN CORPUSCULAR HEMOGLOBIN 29 pg (27-31); MEAN CORPUSCULAR HGB CONC 33 g/dL (33-37); MEAN CORPUSCULAR VOLUME 89.6 fL (80-94); MONOCYTES # (AUTO) 0.8 K/uL (0.8-1.0); NEUTROPHILS % (AUTO) 61.6 % (42.2-75.2); PLATELET COUNT (AUTO) 151 K/uL (140-450); RED BLOOD CELL COUNT(AUTO) 4.54 MIL/uL (4.20-6.10); RED CELL DISTRIBUTION WIDTH 18.5 % (11.6-13.7); WHITE BLOOD COUNT (AUTO) 6.5 K/uL (4.8-10.8)
[2022-11-28] MEDS: BLOOD GLUCOSE MONITORING 1 DEV DEV FS SCH ×4 (06:51→20:13)
[2022-11-28] MEDS: INSULIN LISPRO SLIDING SCALE 100 UNITS/ML VIAL SUBQ PRN ×4 (06:52→20:16)
[2022-11-28 06:58] LABS: ANION GAP 11.2 (8-16); CARBON DIOXIDE 30.9 mmol/L (21-32); CHLORIDE 103 mmol/L (98-107); CREATININE 1.3 mg/dL (0.6-1.3); GLUCOSE 161 mg/dL (74-106); POTASSIUM 3.1 mmol/L (3.5-5.1); SODIUM SERUM 142 mmol/L (136-145); UREA NITROGEN, BLOOD 17 mg/dL (7-18)
--- NOTE | 2022-11-28 07:16 | NUR ---
ASSUMED CONTINUITY OF CARE. INITIAL ASSESSMENT DONE. KEEP COMFORTABLE ON BED. CALL LIGHT WITHIN REACH.
--- NOTE | 2022-11-28 07:42 | NUR ---
ENDORSED TO DAY SHIFT NURSE RIDGE FOR CONTINUITY OF CARE. PATIENT IS STABLE.
--- NOTE | 2022-11-28 08:00 | NUR ---
Patient's Plan of Care was discussed and reviewed with STEAMBOAT CAPTAIN: RIDGE HAIDER
[2022-11-28] MEDS: AZITHROMYCIN 250 MG TAB PO SCH (08:42)
[2022-11-28] MEDS: LOSARTAN 50 MG TAB PO SCH (08:42)
[2022-11-28] MEDS: DILTIAZEM 120 MG CAPER PO SCH ×2 (08:42→20:08)
[2022-11-28] MEDS: APIXABAN 2.5 MG TAB PO SCH ×2 (08:43→20:07)
[2022-11-28] MEDS: POTASSIUM CHLORIDE 10 MEQ TABER PO PRN (08:43)
[2022-11-28] MEDS: BUMETANIDE 1 MG/4 ML VIAL IV SCH ×2 (09:13→16:56)
--- NOTE | 2022-11-28 12:00 | NUR ---
VITALS SIGNS STABLE. NO C/O PAIN. WILL MONITOR.
--- NOTE | 2022-11-28 19:04 | NUR ---
REPORT GIVEN TO FREDERICK SANTIAGO FOR CONTINUITY OF CARE. NO SOB, NOTED. IN STABLE CONDITION.
--- NOTE | 2022-11-28 19:05 | NUR ---
RECEIVED PT FROM MORNING SHIFT NURSE. PT IS AOX4, AMBULATORY, ABLE TO VERBALIZE NEEDS AND ABLE TO FOLLOW COMMANDS. PT IS ON 3L NC AND ON CCHO/CARDIAC DIET. PT HAS IV ON RIGHT HAND GAUGE 20, SALINE LOCK AND LEFT FOREARM GAUGE 20, SALINE LOCK. PT SKIN IS INTACT. NO COMPLAIN OF PAIN AT THIS TIME. NO S/S OF RESPIRATORY DISTRESS NOTED. ALL SAFETY MEASURES IMPLEMENTED. BED IN LOW POSITION AND BED WHEELS ON LOCK.
--- NOTE | 2022-11-28 19:10 | NUR ---
RN CALLED BECAUSE PT ASKED TO BE PUT ON BiPAP FOR THE NIGHT. PT FOUND ON 3L NC WITH SATURATION OF 98% TO 100 %. TOOK OFF NC TO PUT ON BiPAP BUT FAMILY ARRIVED AT BEDSIDE. PT ASKED TO WAIT UNTIL VISITOR LEFT TO START BiPAP. I LEFT NC OF AN PT SATURATION STAYED AY 98%. WILL CONTINUE TO MONITOR PT.
--- NOTE | 2022-11-28 20:16 | NUR ---
ALL SCHEDULED AND PRESCRIBED MEDICATION WAS GIVEN TO PT PER MD ORDER. PT BLOOD GLUCOSE IS 210. HUMALOG INSULIN 4 UNITS WAS GIVEN TO PT. ALL SAFETY MEASURES IMPLEMENTED. BED IN LOW POSITION AND BED WHEELS ON LOCK.
--- NOTE | 2022-11-28 20:21 | NUR ---
RN CALLED TO SAY PT IS READY FOR BiPAP. PT SATURATION AT 97% ON RA, NO SOB REPORTED, PT NOT TACHYPNEIC. PLACED PT ON CPAP TO MATCH WHAT HE IS AT HOME. PT ON CPAP OF 6, FiO2 OF 30% AND IS TOLERATING MASK WELL. WILL CONTINUE TO MONITOR PT. Addendum: 11/28/22 at 2109 by Tressa Redman RT PT IS ABLE TO REMOVE MASK ON HIS OWN. CALL LIGHT IS ON BED WITHIN REACH OF PATIENT.
--- NOTE | 2022-11-28 20:22 | NUR ---
RT MADE ME AWARE THAT PT IS NOW ON CPAP INSTEAD OF BIPAP.
--- NOTE | 2022-11-28 23:30 | NUR ---
RT MADE ME AWARE THAT SHE PUT BIPAP BACK FROM CPAP TO THE PT.
[2022-11-29] VITALS (7 sets, daily range): BP systolic 100–131; BP diastolic 56–65; PULSE 71–112; RESP 18–19; TEMP 97–97.8; O2SAT 92–100
--- NOTE | 2022-11-29 | NUR ---
PT IS ON SLEEP WITH BIPAP. CHEST RISE AND FALL SYMMETRICALLY NOTED. RESPIRATION IS EVEN AND UNLABORED. ALL SAFETY MEASURES IMPLEMENTED. BED IN LOW POSITION AND BED WHEELS ON LOCK.
--- NOTE | 2022-11-29 02:00 | NUR ---
CHECKED THE PT, STILL ON SLEEP. CHEST RISE AND FALL SYMMETRICALLY NOTED. RESPIRATION IS EVEN AND UNLABORED. ALL SAFETY MEASURES IMPLEMENTED. BED IN LOW POSITION, BED WHEELS ON LOCK AND CALL LIGHT WITHIN REACH.
--- NOTE | 2022-11-29 04:00 | NUR ---
PT WAS GIVEN WARM BLANKET PER PT REQUEST. NO COMPLAIN OF PAIN AND NO S/S OF RESPIRATORY DISTRESS NOTED. ALL SAFETY MEASURES IMPLEMENTED. BED IN LOW POSITION, BED WHEELS ON LOCK AND CALL LIGHT WITHIN REACH.
--- NOTE | 2022-11-29 04:53 | NUR ---
RT REMOVED THE BIPAP AND STAY ON ROOM AIR. WILL MONITOR FOR THE O2 LEVEL OF PT WHILE ON ROOM AIR. ALL SAFETY MEASURES IMPLEMENTED. BED IN LOW POSITION, BED WHEELS ON LOCK AND CALL LIGHT WITHIN REACH.
--- NOTE | 2022-11-29 05:06 | NUR ---
TOOK PATIENT OFF BiPAP AND LEFT ON ROOM AIR. SATURATION IS STAYING ABOVE 95%. PATIENT IS RESTING COMFORTABLY AND CALL LIGHT IS ON BED ACCESSIBLE TO PATIENT.
[2022-11-29] MEDS: LEVOTHYROXINE 0.075 MG TAB PO SCH (05:53)
--- NOTE | 2022-11-29 05:53 | NUR ---
SCHEDULED AND PRESCRIBED MEDICATION WAS GIVEN TO PT PER MD ORDER. ALL SAFETY MEASURES IMPLEMENTED. BED IN LOW POSITION, BED WHEELS ON LOCK AND CALL LIGHT WITHIN REACH.
[2022-11-29] MEDS: BLOOD GLUCOSE MONITORING 1 DEV DEV FS SCH ×2 (06:30→11:43)
[2022-11-29] MEDS: INSULIN LISPRO SLIDING SCALE 100 UNITS/ML VIAL SUBQ PRN ×2 (06:31→11:43)
--- NOTE | 2022-11-29 06:31 | NUR ---
PT BLOOD GLUCOSE IS 225. HUMALOG INSULIN 4 UNITS WAS GIVEN TO PT.
[2022-11-29] MEDS ORDERED: APIX5TAB PO (06:39)
[2022-11-29] MEDS ORDERED: CEPH-588 PO (06:39)
[2022-11-29] MEDS ORDERED: DILT-135 PO (06:39)
[2022-11-29 06:46] LABS: BASOPHILS # (AUTO) 0.1 K/uL (0.00-0.22); EOSINOPHILS # (AUTO) 0.3 K/uL (0-0.4); EOSINOPHILS % (AUTO) 3.6 % (0.0-4.0); HEMATOCRIT 42.3 % (36-52); HEMOGLOBIN 14.1 g/dL (12.0-18.0); LYMPHOCYTES # (AUTO) 1.6 K/uL (2.0-11.5); LYMPHOCYTES % (AUTO) 23.3 % (20.5-51.1); MEAN CORPUSCULAR HEMOGLOBIN 30 pg (27-31); MEAN CORPUSCULAR HGB CONC 33 g/dL (33-37); MEAN CORPUSCULAR VOLUME 88.4 fL (80-94); MONOCYTES # (AUTO) 0.9 K/uL (0.8-1.0); MONOCYTES % (AUTO) 12.9 % (1.7-9.3); NEUTROPHILS # (AUTO) 4.2 K/uL (1.8-7.7); NEUTROPHILS % (AUTO) 59.2 % (42.2-75.2); PLATELET COUNT (AUTO) 162 K/uL (140-450); RED BLOOD CELL COUNT(AUTO) 4.79 MIL/uL (4.20-6.10); RED CELL DISTRIBUTION WIDTH 18.4 % (11.6-13.7)
[2022-11-29 06:48] LABS: ANION GAP 13.4 (8-16); CARBON DIOXIDE 27.9 mmol/L (21-32); CHLORIDE 102 mmol/L (98-107); CREATININE 1.2 mg/dL (0.6-1.3); GLUCOSE 209 mg/dL (74-106); POTASSIUM 3.3 mmol/L (3.5-5.1); SODIUM SERUM 140 mmol/L (136-145); UREA NITROGEN, BLOOD 17 mg/dL (7-18)
--- NOTE | 2022-11-29 07:10 | NUR ---
RECEIVED PT FROM QUALITY CONTROLLER FOR CONTINUITY OF CARE. ALERT AND ORIENTED X 4. RESP. EVEN AND UNLABORED. IV SITE PATENT AND INTACT. NO C/O PAIN OR DISCOMFORT. CALL LIGHT KEPT WITHIN REACH. WILL CONTINUE TO MONITOR.
--- NOTE | 2022-11-29 07:15 | NUR ---
PT IS STABLE. ENDORSED PT TO MORNING SHIFT NURSE FOR CONTINUITY OF CARE.
--- NOTE | 2022-11-29 08:00 | NUR ---
Patient's Plan of Care was discussed and reviewed with LAYER OUT: [place]
[2022-11-29] MEDS: DILTIAZEM 120 MG CAPER PO SCH (09:25)
--- NOTE | 2022-11-29 09:25 | NUR ---
SCHEDULED MEDICATIONS GIVEN. DILTIAZEM NOT SCANNING, ENTERED MANUALLY. PHARMACY MADE AWARE.
[2022-11-29] MEDS: APIXABAN 2.5 MG TAB PO SCH (09:31)
[2022-11-29] MEDS: LOSARTAN 50 MG TAB PO SCH (09:31)
[2022-11-29] MEDS: AZITHROMYCIN 250 MG TAB PO SCH (09:32)
[2022-11-29] MEDS: BUMETANIDE 1 MG/4 ML VIAL IV SCH (11:17)
--- NOTE | 2022-11-29 11:40 | NUR ---
[place]: In to see patient at bedside at the request of fishery division chief, Jessie. She states the patient want to talk with social media coordinator about Assisted Living Facilities. I spoke with patient about his living arrangements. Per patient, he resides with his sister. [place] in [place],. The patient would like to remain in [facility] and is wanting his own place. I explained about [facility] vs[facility] placements. The patient receives approximately $2400 a month. I provided the patient with information on [facility] that may be of benefit to him. The patient was receptive of the information provided, but advised that he should consider completing a tour after discharge so he could see what was around. At this time, the patient is not in need of any additional assistance.
--- NOTE | 2022-11-29 14:32 | NUR ---
11/29/22 RD INITIAL ASSESSMENT COMPLETED PLEASE REFER TO NUTRITION ASSESSMENT UNDER CARE ACTIVITY FOR ESTIMATED NUTRITIONAL NEEDS. 1. CONTINUE CCHO 60 GRAM AND CARDIAC DIET TOLERATED, SOFT TEXTURES. 2. RD TO FOLLOW-UP 7 DAYS, LOW RISK JOSEPHINE MONACO RD
--- NOTE | 2022-11-29 15:20 | NUR ---
PT LEFT. DISCHARGED TO HOME. TRANSPORTED BY PRIVATE CAR, ACCOMPANIED BY HIS BROTHER. ALERT AND ORIENTED X 4. RESP. EVEN AND UNLABORED. ID BAND AND IV REMOVED. DISCHARGED PAPERWORK SIGNED AND DISCUSS TO PT. ALL PERSONAL BELONGINGS TAKEN. REMAINS STABLE.
--- NOTE | 2022-12-01 11:49 | NUR ---
CALLED PATIENT TO OBTAIN INFORMATION REGARDING DOCTOR. HIS DOCTOR IS [place] IN [place] WHEN PATIENT CAME FROM. I EXPLAIN THAT HE NEEDS TO CALL HIS INSURANCE SO THAT THEY CAN FIND HIM A NEW DOCTOR TO RESUME CARE HERE IN [place].
== END 2022-11-29 15:25 | disposition home health service (06) | DRG 871 ==
LOC: MED 06:42 → MTU 08:47
PROVIDERS: ADMIT General Practice; ATTEND General Practice
PROC: 5A09357 Assistance with Respiratory Ventilation, Less than 24 Consecutive Hours, Continuous Positive Airway Pressure (ICD-10-PCS; principal; 2022-11-25)
PROC: 5A09357 Assistance with Respiratory Ventilation, Less than 24 Consecutive Hours, Continuous Positive Airway Pressure (ICD-10-PCS; 2022-11-26)
PROC: 5A09357 Assistance with Respiratory Ventilation, Less than 24 Consecutive Hours, Continuous Positive Airway Pressure (ICD-10-PCS; 2022-11-27)
PROC: 5A09357 Assistance with Respiratory Ventilation, Less than 24 Consecutive Hours, Continuous Positive Airway Pressure (ICD-10-PCS; 2022-11-28)
PROC: 5A09357 Assistance with Respiratory Ventilation, Less than 24 Consecutive Hours, Continuous Positive Airway Pressure (ICD-10-PCS; 2022-11-29)
DX: A41.9 Sepsis, unspecified organism (principal); I50.43 Acute on chronic combined systolic (congestive) and diastolic (congestive) heart failure; J69.0 Pneumonitis due to inhalation of food and vomit; J96.01 Acute respiratory failure with hypoxia; J44.1 Chronic obstructive pulmonary disease with (acute) exacerbation; I13.0 Hypertensive heart and chronic kidney disease with heart failure and stage 1 through stage 4 chronic kidney disease, or unspecified chronic kidney disease; N17.9 Acute kidney failure, unspecified; I48.20 Chronic atrial fibrillation, unspecified; Z20.822 Contact with and (suspected) exposure to COVID-19; N18.9 Chronic kidney disease, unspecified; E03.9 Hypothyroidism, unspecified; E11.22 Type 2 diabetes mellitus with diabetic chronic kidney disease; G47.33 Obstructive sleep apnea (adult) (pediatric); I48.91 Unspecified atrial fibrillation; Z87.891 Personal history of nicotine dependence; Z88.2 Allergy status to sulfonamides; Z79.01 Long term (current) use of anticoagulants; Z79.899 Other long term (current) drug therapy
CPT/HCPCS: 36415; 36600; 71045; 71275; 80048; 80053; 82803; 82948; 83036; 83605; 83735; 83880; 84484; 85025; 85379; 85610; 85730; 87040; 87081; 93005; 94660; 96374; 99285; J0696; J1644; J1815; J1940; J2001; J3480; J3490; J7030; J7060; Q9967

== ENCOUNTER 2023-01-17 23:36 | Inpatient (IN) | payer OTHER ==
[~2023-01-17] VITALS: Ht 177.8 cm; Wt 79.4 kg
[2023-01-17 23:36] VITALS: BP 107/56; PULSE 66; RESP 16; TEMP 98; O2SAT 94
[~2023-01-17 23:36] MED LIST changes: +APIX5TAB PO; -ATEN100T2 PO; -AZIT250T3 PO; -DILT-135; +DILT-135 PO; +LOSA-272 PO; -LOSA100T2 PO
[2023-01-18] VITALS (16 sets, daily range): BP systolic 107–118; BP diastolic 60–62; PULSE 58–84; RESP 18–25; TEMP 96.7–98.4; O2SAT 90–100
[2023-01-18] MEDS ORDERED: MAG SULF 2000 MG/WATER PREMIX 50 ML IV ONE (00:20)
[2023-01-18] MEDS ORDERED: FUROSEMIDE 40 MG/4 ML VIAL IVP ONE (00:20)
[2023-01-18] MEDS ORDERED: ATEN100T2 PO (00:28)
[2023-01-18] MEDS ORDERED: BUME2TAB PO (00:28)
[2023-01-18] MEDS ORDERED: EMPA25TA PO (00:28)
[2023-01-18] MEDS ORDERED: APIX5TAB PO (00:28)
[2023-01-18] MEDS ORDERED: POTA20TA50 PO (00:28)
[2023-01-18] MEDS ORDERED: [UNRECOGNIZED DRUG - CODE] PO (00:28)
[2023-01-18] MEDS ORDERED: LOSA50TA57 PO (00:28)
[2023-01-18 00:32] LABS: BASOPHILS # (AUTO) 0.1 K/uL (0.00-0.22); BASOPHILS % (AUTO) 1.9 % (0.0-2.0); EOSINOPHILS # (AUTO) 0.2 K/uL (0-0.4); EOSINOPHILS % (AUTO) 3.1 % (0.0-4.0); HEMATOCRIT 41.6 % (36-52); HEMOGLOBIN 13.7 g/dL (12.0-18.0); LYMPHOCYTES # (AUTO) 2.6 K/uL (2.0-11.5); LYMPHOCYTES % (AUTO) 37.6 % (20.5-51.1); MEAN CORPUSCULAR HEMOGLOBIN 31 pg (27-31); MEAN CORPUSCULAR HGB CONC 33 g/dL (33-37); MEAN CORPUSCULAR VOLUME 92.5 fL (80-94); MONOCYTES # (AUTO) 0.7 K/uL (0.8-1.0); MONOCYTES % (AUTO) 9.5 % (1.7-9.3); NEUTROPHILS # (AUTO) 3.3 K/uL (1.8-7.7); NEUTROPHILS % (AUTO) 47.9 % (42.2-75.2); PLATELET COUNT (AUTO) 134 K/uL (140-450); RED CELL DISTRIBUTION WIDTH 16.3 % (11.6-13.7)
[2023-01-18 00:56] LABS: ALANINE AMINOTRANSFERASE 76 U/L (12-78); ALBUMIN 3.4 g/dL (3.4-5.0); ALKALINE PHOSPHATASE 102 U/L (50-136); ANION GAP 14.4 (8-16); ASPARTATE AMINOTRANSFERASE 118 U/L (15-37); CALCIUM 8.5 mg/dL (8.5-10.1); CHLORIDE 102 mmol/L (98-107); CREATININE 1.8 mg/dL (0.6-1.3); GLUCOSE 280 mg/dL (74-106); POTASSIUM 3.4 mmol/L (3.5-5.1); SODIUM SERUM 140 mmol/L (136-145); TOTAL BILIRUBIN 0.5 mg/dL (0.0-1.0); TOTAL PROTEIN, SERUM 7.2 g/dL (6.4-8.2); UREA NITROGEN, BLOOD 14 mg/dL (7-18)
[2023-01-18 00:57] LABS: FLU A ANTIGEN negative (NEGATIVE); FLU B ANTIGEN NEGATIVE (NEGATIVE)
[2023-01-18] MEDS ORDERED: POTASSIUM CHLORIDE 10 MEQ TABER PO ONE (01:35)
[2023-01-18] MEDS ORDERED: CEFEPIME 1,000 MG in DEXTROSE 5% 50 ML IV ONE (03:40)
[2023-01-18] MEDS ORDERED: CEFEPIME 1,000 MG VIAL ONE (03:43)
[2023-01-18] MEDS ORDERED: ZOLPIDEM 5 MG TAB PO PRN (03:45)
[2023-01-18] MEDS ORDERED: ACETAMINOPHEN 325 MG TAB PO PRN (03:45)
[2023-01-18] MEDS ORDERED: guaiFENesin DM 200/20 MG-10 ML 10 ML UDC PO PRN (03:45)
[2023-01-18] MEDS ORDERED: HYDROcodone/APAP 7.5/325 MG 1 TAB PO PRN (03:45)
[2023-01-18] MEDS ORDERED: DOCUSATE SODIUM 100 MG GELCAP PO PRN (03:45)
[2023-01-18] MEDS ORDERED: ONDANSETRON 4 MG/2 ML VIAL IM/IVP PRN (03:45)
[2023-01-18] MEDS ORDERED: ALBUTEROL SULFATE/IPRATROPIU 3 ML SOL IH PRN (03:50)
[2023-01-18] MEDS: LEVOTHYROXINE 0.075 MG TAB PO SCH (06:30)
[2023-01-18] MEDS: ALBUTEROL SULFATE/IPRATROPIU 3 ML SOL IH SCH ×3 (06:59→19:53)
[2023-01-18] MEDS ORDERED: DEXTROSE 50% 50 ML SYR IVP PRN (08:35)
[2023-01-18] MEDS ORDERED: atenoloL 50 MG TAB PO SCH (09:00)
[2023-01-18] MEDS ORDERED: BUMETANIDE 1 MG/4 ML VIAL IV SCH ×2 (09:00→17:00)
[2023-01-18] MEDS ORDERED: BUMETANIDE 1 MG TAB PO SCH (09:00)
[2023-01-18] MEDS ORDERED: DILTIAZEM 120 MG CAPER PO SCH (09:00)
[2023-01-18] MEDS: APIXABAN 2.5 MG TAB PO SCH ×2 (09:39→22:13)
[2023-01-18] MEDS: POTASSIUM CHLORIDE 10 MEQ TABER PO PRN (09:42)
[2023-01-18] MEDS: PANTOPRAZOLE 40 MG TABEC PO SCH (09:44)
[2023-01-18] MEDS: BLOOD GLUCOSE MONITORING 1 DEV DEV FS SCH ×3 (12:29→22:00)
[2023-01-18] MEDS: INSULIN LISPRO SLIDING SCALE 100 UNITS/ML VIAL SUBQ PRN ×2 (13:25→22:45)
[2023-01-18] MEDS: BUMETANIDE IV SCH (17:00)
[2023-01-18] MEDS: BUDESONIDE 0.25 MG/2 ML NEBU INH SCH (19:53)
[2023-01-18] MEDS: ATORVASTATIN 20 MG TAB PO SCH (22:11)
[2023-01-18] MEDS: CEFEPIME 1,000 MG in DEXTROSE 5% 50 ML IV SCH (22:23)
[2023-01-19] VITALS (14 sets, daily range): BP systolic 110–130; BP diastolic 56–70; PULSE 53–108; RESP 18–28; TEMP 96.9–98.6; O2SAT 89–100
[2023-01-19 06:21] LABS: BASOPHILS # (AUTO) 0.1 K/uL (0.00-0.22); BASOPHILS % (AUTO) 0.9 % (0.0-2.0); EOSINOPHILS # (AUTO) 0.1 K/uL (0-0.4); EOSINOPHILS % (AUTO) 0.6 % (0.0-4.0); HEMATOCRIT 42.2 % (36-52); HEMOGLOBIN 13.6 g/dL (12.0-18.0); LYMPHOCYTES # (AUTO) 1.3 K/uL (2.0-11.5); LYMPHOCYTES % (AUTO) 10.8 % (20.5-51.1); MEAN CORPUSCULAR HEMOGLOBIN 30 pg (27-31); MEAN CORPUSCULAR HGB CONC 32 g/dL (33-37); MEAN CORPUSCULAR VOLUME 93.2 fL (80-94); MONOCYTES # (AUTO) 1.3 K/uL (0.8-1.0); MONOCYTES % (AUTO) 10.4 % (1.7-9.3); NEUTROPHILS # (AUTO) 9.3 K/uL (1.8-7.7); NEUTROPHILS % (AUTO) 77.3 % (42.2-75.2); PLATELET COUNT (AUTO) 126 K/uL (140-450); RED BLOOD CELL COUNT(AUTO) 4.53 MIL/uL (4.20-6.10); RED CELL DISTRIBUTION WIDTH 15.9 % (11.6-13.7); WHITE BLOOD COUNT (AUTO) 12.1 K/uL (4.8-10.8)
[2023-01-19 06:54] LABS: ALANINE AMINOTRANSFERASE 54 U/L (12-78); ALBUMIN 3.3 g/dL (3.4-5.0); ALKALINE PHOSPHATASE 93 U/L (50-136); ASPARTATE AMINOTRANSFERASE 51 U/L (15-37); CALCIUM 8.8 mg/dL (8.5-10.1); CARBON DIOXIDE 24.4 mmol/L (21-32); CHLORIDE 107 mmol/L (98-107); CREATININE 1.8 mg/dL (0.6-1.3); GLUCOSE 170 mg/dL (74-106); POTASSIUM 3.4 mmol/L (3.5-5.1); SODIUM SERUM 146 mmol/L (136-145); TOTAL BILIRUBIN 1.4 mg/dL (0.0-1.0); TOTAL PROTEIN, SERUM 7.3 g/dL (6.4-8.2); UREA NITROGEN, BLOOD 22 mg/dL (7-18)
[2023-01-19] MEDS: LEVOTHYROXINE 0.075 MG TAB PO SCH (07:25)
[2023-01-19] MEDS: BLOOD GLUCOSE MONITORING 1 DEV DEV FS SCH ×4 (07:31→20:35)
[2023-01-19] MEDS: ALBUTEROL SULFATE/IPRATROPIU 3 ML SOL IH SCH ×3 (07:32→18:48)
[2023-01-19] MEDS: BUDESONIDE 0.25 MG/2 ML NEBU INH SCH ×2 (07:32→18:48)
[2023-01-19] MEDS: CEFEPIME 1,000 MG in DEXTROSE 5% 50 ML IV SCH ×2 (09:16→20:19)
[2023-01-19] MEDS: PANTOPRAZOLE 40 MG TABEC PO SCH (09:16)
[2023-01-19] MEDS: POTASSIUM CHLORIDE 10 MEQ TABER PO PRN (09:17)
[2023-01-19] MEDS: APIXABAN 2.5 MG TAB PO SCH ×2 (09:19→20:17)
[2023-01-19] MEDS: BUMETANIDE IV SCH ×2 (09:22→16:42)
[2023-01-19] MEDS: INSULIN LISPRO SLIDING SCALE 100 UNITS/ML VIAL SUBQ PRN ×3 (11:35→20:45)
[2023-01-19] MEDS: ATORVASTATIN 20 MG TAB PO SCH (20:12)
[2023-01-20] VITALS (13 sets, daily range): BP systolic 81–132; BP diastolic 55–65; PULSE 68–123; RESP 16–20; TEMP 96.6–98.5; O2SAT 94–100
[2023-01-20 06:16] LABS: BASOPHILS # (AUTO) 0.1 K/uL (0.00-0.22); BASOPHILS % (AUTO) 0.7 % (0.0-2.0); EOSINOPHILS # (AUTO) 0.2 K/uL (0-0.4); EOSINOPHILS % (AUTO) 2.6 % (0.0-4.0); HEMATOCRIT 40.6 % (36-52); HEMOGLOBIN 13.5 g/dL (12.0-18.0); LYMPHOCYTES # (AUTO) 1.6 K/uL (2.0-11.5); LYMPHOCYTES % (AUTO) 18.6 % (20.5-51.1); MEAN CORPUSCULAR HEMOGLOBIN 31 pg (27-31); MEAN CORPUSCULAR HGB CONC 33 g/dL (33-37); MEAN CORPUSCULAR VOLUME 92.5 fL (80-94); MONOCYTES % (AUTO) 11.7 % (1.7-9.3); NEUTROPHILS # (AUTO) 5.8 K/uL (1.8-7.7); NEUTROPHILS % (AUTO) 66.4 % (42.2-75.2); PLATELET COUNT (AUTO) 119 K/uL (140-450); RED BLOOD CELL COUNT(AUTO) 4.39 MIL/uL (4.20-6.10); WHITE BLOOD COUNT (AUTO) 8.7 K/uL (4.8-10.8)
[2023-01-20 06:39] LABS: ALANINE AMINOTRANSFERASE 46 U/L (12-78); ALKALINE PHOSPHATASE 81 U/L (50-136); ANION GAP 14.1 (8-16); ASPARTATE AMINOTRANSFERASE 49 U/L (15-37); CALCIUM 7.9 mg/dL (8.5-10.1); CARBON DIOXIDE 26.9 mmol/L (21-32); CHLORIDE 106 mmol/L (98-107); CREATININE 1.5 mg/dL (0.6-1.3); GLUCOSE 157 mg/dL (74-106); SODIUM SERUM 144 mmol/L (136-145); TOTAL BILIRUBIN 1.2 mg/dL (0.0-1.0); TOTAL PROTEIN, SERUM 6.8 g/dL (6.4-8.2); UREA NITROGEN, BLOOD 22 mg/dL (7-18)
[2023-01-20 06:40] LABS: MAGNESIUM 2.3 mg/dL (1.8-2.4); PHOSPHORUS 2.7 mg/dL (2.5-4.9)
[2023-01-20] MEDS: ALBUTEROL SULFATE/IPRATROPIU 3 ML SOL IH SCH ×3 (07:20→19:20)
[2023-01-20] MEDS: BUDESONIDE 0.25 MG/2 ML NEBU INH SCH ×2 (07:20→19:20)
[2023-01-20] MEDS: BLOOD GLUCOSE MONITORING 1 DEV DEV FS SCH ×4 (07:24→20:56)
[2023-01-20] MEDS: LEVOTHYROXINE 0.075 MG TAB PO SCH (07:25)
[2023-01-20] MEDS: INSULIN LISPRO SLIDING SCALE 100 UNITS/ML VIAL SUBQ PRN ×4 (07:31→20:56)
[2023-01-20] MEDS: POTASSIUM CHLORIDE 10 MEQ TABER PO PRN (09:46)
[2023-01-20] MEDS: CEFEPIME 1,000 MG in DEXTROSE 5% 50 ML IV SCH ×2 (09:46→20:47)
[2023-01-20] MEDS: PANTOPRAZOLE 40 MG TABEC PO SCH (09:47)
[2023-01-20] MEDS: BUMETANIDE IV SCH ×2 (09:56→17:07)
[2023-01-20] MEDS: APIXABAN 2.5 MG TAB PO SCH ×2 (09:56→20:55)
[2023-01-20] MEDS ORDERED: LEVO0.173 PO (11:50)
[2023-01-20] MEDS ORDERED: CLIN300C2 PO (11:50)
[2023-01-20] MEDS: ATORVASTATIN 20 MG TAB PO SCH (20:47)
[2023-01-21] VITALS (7 sets, daily range): BP systolic 116–130; BP diastolic 59–84; PULSE 79–123; RESP 17–20; TEMP 96.2–97; O2SAT 96–100
[2023-01-21 06:12] LABS: BASOPHILS # (AUTO) 0.1 K/uL (0.00-0.22); BASOPHILS % (AUTO) 1.1 % (0.0-2.0); EOSINOPHILS # (AUTO) 0.2 K/uL (0-0.4); EOSINOPHILS % (AUTO) 3.2 % (0.0-4.0); HEMATOCRIT 41.9 % (36-52); HEMOGLOBIN 13.8 g/dL (12.0-18.0); LYMPHOCYTES # (AUTO) 1.8 K/uL (2.0-11.5); LYMPHOCYTES % (AUTO) 23.7 % (20.5-51.1); MEAN CORPUSCULAR HEMOGLOBIN 30 pg (27-31); MEAN CORPUSCULAR HGB CONC 33 g/dL (33-37); MEAN CORPUSCULAR VOLUME 91.9 fL (80-94); MONOCYTES # (AUTO) 0.8 K/uL (0.8-1.0); MONOCYTES % (AUTO) 10.7 % (1.7-9.3); NEUTROPHILS # (AUTO) 4.7 K/uL (1.8-7.7); NEUTROPHILS % (AUTO) 61.3 % (42.2-75.2); PLATELET COUNT (AUTO) 134 K/uL (140-450); RED BLOOD CELL COUNT(AUTO) 4.56 MIL/uL (4.20-6.10); RED CELL DISTRIBUTION WIDTH 15.9 % (11.6-13.7); WHITE BLOOD COUNT (AUTO) 7.7 K/uL (4.8-10.8)
[2023-01-21] MEDS: LEVOTHYROXINE 0.075 MG TAB PO SCH (06:38)
[2023-01-21] MEDS: BLOOD GLUCOSE MONITORING 1 DEV DEV FS SCH ×2 (06:42→11:45)
[2023-01-21] MEDS: INSULIN LISPRO SLIDING SCALE 100 UNITS/ML VIAL SUBQ PRN ×2 (06:42→11:42)
[2023-01-21 06:54] LABS: ALANINE AMINOTRANSFERASE 51 U/L (12-78); ALBUMIN 2.9 g/dL (3.4-5.0); ALKALINE PHOSPHATASE 83 U/L (50-136); ANION GAP 14.5 (8-16); ASPARTATE AMINOTRANSFERASE 55 U/L (15-37); CALCIUM 7.5 mg/dL (8.5-10.1); CARBON DIOXIDE 26.6 mmol/L (21-32); CHLORIDE 103 mmol/L (98-107); CREATININE 1.5 mg/dL (0.6-1.3); GLUCOSE 217 mg/dL (74-106); POTASSIUM 3.1 mmol/L (3.5-5.1); SODIUM SERUM 141 mmol/L (136-145); TOTAL BILIRUBIN 0.7 mg/dL (0.0-1.0); TOTAL PROTEIN, SERUM 6.7 g/dL (6.4-8.2); UREA NITROGEN, BLOOD 19 mg/dL (7-18)
[2023-01-21 06:56] LABS: MAGNESIUM 2.1 mg/dL (1.8-2.4); PHOSPHORUS 2.5 mg/dL (2.5-4.9)
[2023-01-21] MEDS: BUDESONIDE 0.25 MG/2 ML NEBU INH SCH (07:21)
[2023-01-21] MEDS: ALBUTEROL SULFATE/IPRATROPIU 3 ML SOL IH SCH ×2 (07:21→13:16)
[2023-01-21] MEDS: BUMETANIDE IV SCH (09:00)
[2023-01-21] MEDS: POTASSIUM CHLORIDE 10 MEQ TABER PO PRN (09:24)
[2023-01-21] MEDS: PANTOPRAZOLE 40 MG TABEC PO SCH (09:25)
[2023-01-21] MEDS: APIXABAN 2.5 MG TAB PO SCH (09:26)
[2023-01-21] MEDS: CEFEPIME 1,000 MG in DEXTROSE 5% 50 ML IV SCH (11:21)
[2023-01-21] MEDS ORDERED: METOPROLOL SUCCINATE 50 MG TABER PO SCH (14:40)
[2023-01-21] MEDS ORDERED: BUMETANIDE 1 MG/4 ML VIAL IV SCH (17:00)
== END 2023-01-21 15:06 | disposition home health service (06) | DRG 193 ==
LOC: MED 23:36 → MTU 01-18 03:48
PROVIDERS: ADMIT Student in an Organized Health Care Education/Training Program; ATTEND Student in an Organized Health Care Education/Training Program
PROC: 5A09357 Assistance with Respiratory Ventilation, Less than 24 Consecutive Hours, Continuous Positive Airway Pressure (ICD-10-PCS; principal; 2023-01-18)
DX: J15.9 Unspecified bacterial pneumonia (principal); I50.43 Acute on chronic combined systolic (congestive) and diastolic (congestive) heart failure; J96.01 Acute respiratory failure with hypoxia; N17.0 Acute kidney failure with tubular necrosis; J44.1 Chronic obstructive pulmonary disease with (acute) exacerbation; I13.0 Hypertensive heart and chronic kidney disease with heart failure and stage 1 through stage 4 chronic kidney disease, or unspecified chronic kidney disease; J44.0 Chronic obstructive pulmonary disease with (acute) lower respiratory infection; E44.1 Mild protein-calorie malnutrition; Z20.822 Contact with and (suspected) exposure to COVID-19; N18.9 Chronic kidney disease, unspecified; E11.22 Type 2 diabetes mellitus with diabetic chronic kidney disease; E03.9 Hypothyroidism, unspecified; E78.00 Pure hypercholesterolemia, unspecified; E87.6 Hypokalemia; I48.91 Unspecified atrial fibrillation; Z79.01 Long term (current) use of anticoagulants; Z88.2 Allergy status to sulfonamides; Z79.899 Other long term (current) drug therapy; Z68.25 Body mass index [BMI] 25.0-25.9, adult
CPT/HCPCS: 36415; 71045; 76604; 80053; 82948; 83735; 83880; 84100; 84443; 84484; 85025; 87040; 87081; 93005; 94010; 94640; 94660; 97163-GP; J0692; J1815; J1940; J3475; J3490; J7060; J7626; Q0092